=== PATIENT | male | born 1945 | race Caucasian/White ===

== ENCOUNTER 2016-08-27 22:18 | Inpatient (IN) | payer BC, MEDICARE ==
[~2016-08-27] VITALS: Ht 180.3 cm; Wt 92.4 kg
[~2016-08-27 22:18] MED LIST: SUCCINYLCHOLINE CHLORIDE 200 MG/10 ML VIAL IVP ONE
[2016-08-27 22:22] VITALS: O2SAT 88
[2016-08-27 22:41] LABS: I-STAT POTASSIUM 4.6 MMOL/L (3.5-4.9); I-STAT SODIUM 145 MMOL/L (138-146)
[2016-08-27 22:43] LABS: AUTOMATED NEUTROPHIL # 12.8 TH/MM3 (1.8-7.7); BASOPHIL # 0.5 TH/MM3 (0-0.2); BASOPHIL % 2.3 % (0.0-2.0); EOSINOPHIL # 0.7 TH/MM3 (0-0.4); EOSINOPHIL % 3.2 % (0.0-4.0); HEMATOCRIT 45.6 % (39.0-51.0); LYMPH % 29.4 % (9.0-44.0); LYMPHOCYTE # 6.1 TH/MM3 (1.0-4.8); MEAN CELL VOLUME 89.8 FL (80.0-100.0); MEAN CORPUSCULAR HEMOGLOBIN 30.8 PG (27.0-34.0); MEAN CORPUSCULAR HGB CONC 34.3 % (32.0-36.0); MONO % 3.7 % (0.0-8.0); NEUT % 61.4 % (16.0-70.0); PLATELET COUNT 253 TH/MM3 (150-450); RED BLOOD COUNT 5.07 MIL/MM3 (4.50-5.90); RED CELL DISTRIBUTION WIDTH 14.3 % (11.6-17.2); WHITE BLOOD COUNT 20.8 TH/MM3 (4.0-11.0)
[2016-08-27 22:44] LABS: HEMO FLAGS AUTO DIFF
[2016-08-27 22:45] VITALS: O2SAT 86
[2016-08-27] MEDS ORDERED: IOHEXOL 350 MG/ML 10 ML VIAL (for RAD DIAG) IV ONE (22:54)
[2016-08-27 22:58] LABS: APTT (PATIENT) 25.6 SEC (24.3-30.1); INTERNATIONAL NORMALIZED RATIO 1.1 RATIO
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
[2016-08-27 23:30] VITALS: O2SAT 91
[2016-08-27] MEDS ORDERED: ROCURONIUM INJ 50 MG/5 ML VIAL ONE (23:32)
[2016-08-27] MEDS ORDERED: MIDAZOLAM HCL 5 MG/ML VIAL (1 ML) ONE ×2 (23:32)
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
[2016-08-27 23:36] LABS: BANDS 5 % (0-6); EOSINOPHILS 3 % (0-4); NEUTROPHIL # MANUAL DIFF 11.2 TH/MM3 (1.8-7.7); POLYS (SEG NEUTROPHILS) 49 % (16-70); WBC DIFF SAMPLE 100
[2016-08-27 23:37] LABS: PLATELET ESTIMATE SMEAR NORMAL (NORMAL); PLATELET MORPHOLOGY NORMAL (NORMAL); SCAN/DIFF FINAL DIFF MANUAL
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
[2016-08-27 23:38] VITALS: O2SAT 94
[2016-08-27] MEDS ORDERED: NOREPINEPHRINE 4 MG/4 ML AMP ONE (23:41)
[2016-08-27] MEDS ORDERED: MIDAZOLAM HCL 5 MG/ML VIAL (1 ML) IV SCH (23:45)
[2016-08-27] MEDS ORDERED: ROCURONIUM INJ 50 MG/5 ML VIAL IV SCH (23:45)
[2016-08-27 23:46] LABS: AMPHETAMINE, URINE NEG (NEG); BARBITURATES, URINE NEG (NEG); COCAINE, URINE NEG (NEG)
[2016-08-27 23:47] LABS: BACTERIA, URINE RARE /hpf; BLOOD, URINE MOD (NEG); COMMENT (UR) CATH-CULT NOT IND; CULTURE IF INDICATED CATH CULTURE NOT IND; GLUCOSE,URINE NEG (NEG); KETONE, URINE NEG (NEG); MUCUS URINE FEW /lpf (OCC); NITRITE,URINE NEG (NEG); PH, URINE 5.5 (5.0-8.5); RENAL EPITHELIAL CELLS <1 /hpf; SQUAMOUS EPITHELIAL CELL URINE <1 /hpf (0-5); TRANSITIONAL EPI CELLS, URINE <1 /hpf; URINE COLOR YELLOW (YELLW/STRAW)
[2016-08-28] VITALS (17 sets, daily range): BP systolic 100–149; BP diastolic 56–93; PULSE 61–104; RESP 15–19; TEMP 96.6–101.3; O2SAT 95–100
[2016-08-28] MEDS ORDERED: ONDANSETRON HCL 4 MG/2 ML VIAL IV PRN (00:15)
[2016-08-28] MEDS ORDERED: MAGNESIUM OXIDE 400 MG TAB PO PRN (00:15)
[2016-08-28] MEDS ORDERED: POTASSIUM CHLOR 20 MEQ PREMIX 100 ML IV PRN ×2 (00:15)
[2016-08-28] MEDS ORDERED: POTASSIUM CHLOR 40 MEQ PREMIX 100 ML IV PRN ×2 (00:15)
[2016-08-28] MEDS ORDERED: Post-op Orders (for Pharmacy) MISC XX ONE (00:15)
[2016-08-28] MEDS ORDERED: NOREPINEPHRINE 4 MG/D5W 250 ML IV SCH (00:15)
[2016-08-28] MEDS ORDERED: PROPOFOL 1000 MG/100 ML INJ 100 ML IV SCH (00:15)
[2016-08-28] MEDS ORDERED: POTASSIUM CL 40 MEQ/30 ML LIQ UDC PO/TUBE PRN ×2 (00:15)
[2016-08-28] MEDS ORDERED: MAGNESIUM SULFATE INJ 4 GM in SODIUM CHLORIDE 0.9% INJ 92 ML IV PRN (00:15)
[2016-08-28] MEDS ORDERED: MAGNESIUM SULFATE INJ 2 GM in SODIUM CHLORIDE 0.9% INJ 96 ML IV PRN (00:15)
[2016-08-28] MEDS ORDERED: SODIUM CHLORIDE 0.9% FLUSH 5 ML FLUSH IVF PRN (00:15)
[2016-08-28] MEDS ORDERED: POTASSIUM PHOSPHATE MONOBASIC 500 MG TAB PO PRN (00:15)
[2016-08-28] MEDS ORDERED: NALOXONE HCL 0.4 MG/ML AMP IV PRN (00:15)
[2016-08-28] MEDS ORDERED: POTASSIUM PHOSPHATE MONOBASIC 500 MG TAB PO/TUBE PRN (00:15)
[2016-08-28] MEDS ORDERED: SODIUM PHOSPHATE INJ 30 MMOL in SODIUM CHLOR 0.9% 250 ML INJ 240 ML IV PRN (00:15)
[2016-08-28 00:23] LABS: CREATINE KINASE 477 U/L (39-308)
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
--- NOTE | 2016-08-28 00:34 | PD.OP ---
KHUSHI [id number] Operative Report Date of Surgery: Aug 28, 2016 Preoperative Diagnosis: Severe traumatic brain injury with a small left acute subdural hemorrhage along with the bihemispheric traumatic subarachnoid hemorrhage Postoperative Diagnosis: Same Procedure: Left frontal twist drill hole Suyapa ICP monitor placement Anesthesia: Local with sedation Surgeon: Marcio Hayes M.D. Cloth Washer Back Tender(s): None Operation and Findings: No family is available and the procedure to being undertaken taking the patient' s best interest into account in order to manage his severe traumatic brain injury. Following administration of the intravenous Versed and Diprivan drip with the oxygen saturation and hemodynamic monitoring in the intensive care unit , the left frontal region was shaved and the prep with chlor prep and sterilely draped. Using landmarks of 11 cm behind the nasion and 3 cm to the right of the midline, a 1 cm scalp incision was made after infiltrating with 1% lidocaine with epinephrine solution. With a handheld drill a twist drill hole was made in the underlying dura penetrated with a blunt probe. The Suyapa bolt was then secured to the skull. The fiberoptic catheter zeroed and passed into the subarachnoid space with an opening pressure of 7 mmHg noted. A sterile dressing was applied. There were no complications and blood loss was less than 5 cc. Marcio Hayes MD Aug 28, 2016 00:34
[2016-08-28 00:39] LABS: CKMB 3.7 NG/ML (0.5-3.6)
[2016-08-28] MEDS: fentaNYL 2,500 MCG/NS 250 ML IV SCH ×2 (00:54→18:09)
[2016-08-28] MEDS: 3% SALINE INJ 500 ML IV SCH ×2 (00:54→11:30)
[2016-08-28] MEDS: SODIUM CHLOR 0.9% 1000 ML INJ 1,000 ML IV SCH ×3 (00:55→20:04)
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
[2016-08-28] MEDS: levETIRAcetam INJ 500 MG in SODIUM CHLORIDE 0.9% INJ 100 ML IV SCH ×3 (00:57→20:51)
[2016-08-28] MEDS: PANTOPRAZOLE SODIUM 40 MG VIAL IV SCH ×2 (00:57→23:50)
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
[2016-08-28 02:07] LABS: BLOOD GAS BASE EXCESS -5.4 mmol/L (-2-2); BLOOD GAS CARBOXYHEMOGLOBIN 0.9 % (0-4); BLOOD GAS HCO3 20 mmol/L (22-26); BLOOD GAS METHEMOGLOBIN 0.9 % (0-2); BLOOD GAS O2 HGB SATURATION 92 % (90-100); BLOOD GAS OXYGEN CONTENT 17.8 Vol % (12.0-20.0); BLOOD GAS PCO2 45 mmHg (38-42); BLOOD GAS PO2 76 mmHg (61-120); BLOOD GAS TOTAL HGB 13.8 G/DL (12.0-16.0); CRITICAL VALUE YES; OXYGEN DEVICE VENTILATOR; TEMP CORR TO 98.6
[2016-08-28 02:08] LABS: DRAW SITE RT RADIAL; FIO2 100 %; NUMBER OF ARTERIAL PUNCTURES 1; STAT YES; ULNAR PULSE PRESENT; VENT SETTINGS PRVC/AC
[2016-08-28] MEDS ORDERED: ALBUMIN HUMAN 5% 25 GM/500 ML BOTTLE IV ONE (02:45)
[2016-08-28] MEDS: NOREPINEPHRINE INJ 4 MG in SODIUM CHLOR 0.9% 250 ML INJ 250 ML IV SCH ×3 (04:36→14:05)
[2016-08-28 04:47] LABS: AUTOMATED NEUTROPHIL # 20.2 TH/MM3 (1.8-7.7); BASOPHIL % 0.1 % (0.0-2.0); EOSINOPHIL # 0.1 TH/MM3 (0-0.4); EOSINOPHIL % 0.4 % (0.0-4.0); HEMATOCRIT 33.5 % (39.0-51.0); HEMO FLAGS DIFF FINAL; LYMPH % 5.7 % (9.0-44.0); LYMPHOCYTE # 1.3 TH/MM3 (1.0-4.8); MEAN CORPUSCULAR HEMOGLOBIN 30.3 PG (27.0-34.0); MEAN CORPUSCULAR HGB CONC 34.4 % (32.0-36.0); MONO % 7.7 % (0.0-8.0); NEUT % 86.1 % (16.0-70.0); PLATELET COUNT 244 TH/MM3 (150-450); RED BLOOD COUNT 3.81 MIL/MM3 (4.50-5.90); RED CELL DISTRIBUTION WIDTH 13.8 % (11.6-17.2); WHITE BLOOD COUNT 23.5 TH/MM3 (4.0-11.0)
[2016-08-28 05:15] LABS: BICARBONATE 21.5 MEQ/L (21.0-32.0); MAGNESIUM 1.7 MG/DL (1.5-2.5); POTASSIUM 3.6 MEQ/L (3.5-5.1)
[2016-08-28 05:36] LABS: BLOOD GAS BASE EXCESS -4.6 mmol/L (-2-2); BLOOD GAS HCO3 19 mmol/L (22-26); BLOOD GAS METHEMOGLOBIN 1.1 % (0-2); BLOOD GAS O2 HGB SATURATION 93 % (90-100); BLOOD GAS OXYGEN CONTENT 15.4 Vol % (12.0-20.0); BLOOD GAS PO2 73 mmHg (61-120); BLOOD GAS TOTAL HGB 11.7 G/DL (12.0-16.0); CRITICAL VALUE NO; DRAW SITE RT RADIAL; FIO2 50 %; NUMBER OF ARTERIAL PUNCTURES 1; OXYGEN DEVICE VENTILATOR; STAT NO; TEMP CORR TO 98.6; ULNAR PULSE PRESENT; VENT SETTINGS PRVC/AC
[2016-08-28 05:38] LABS: BLOOD GAS PCO2 29 mmHg (38-42)
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
--- NOTE | 2016-08-28 07:21 | PD.PROCEDR ---
Procedure Note Procedure DX: Traumatic Brain Injury OP: Insertion Left Radial Artery Line (23417) Procedure: Right radial artery weak after several attempts to cannulate. Left wrist/hand Noah test normal. Left clavicular fracture problematic but should be able to position arm in sling after line placed. Left wrist supinated , prepped and draped. Left radial artery cannulated with 20 gauge needle and wire advanced. Cannula passed over wire to 3 cm and good waveform observed. Dressing applied. Circulation to left hand intact after procedure. Woody Hussein MD Aug 28, 2016 07:21
[2016-08-28] MEDS: SODIUM CHLORIDE 0.9% FLUSH 5 ML FLUSH IVF SCH ×2 (08:06→20:52)
[2016-08-28] MEDS: CHLORHEXIDINE 0.12% (ORAL KIT) 15 ML CUP MT SCH ×2 (08:06→20:51)
[2016-08-28] MEDS ORDERED: RESP: ALBUTEROL 2.5 MG/IPRATROPIUM 0.5 MG NEB (PRN) NEB (09:00)
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
[2016-08-28] MEDS ORDERED: ACETAMINOPHEN 1000 MG/100 ML VIAL IV PRN (10:15)
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
[2016-08-28] MEDS ORDERED: ATOR40TA16 PO (12:12)
[2016-08-28] MEDS ORDERED: AMLO5TAB2 PO (12:12)
[2016-08-28] MEDS ORDERED: METF500T PO (12:12)
[2016-08-28] MEDS ORDERED: LISI10TA3 PO (12:12)
[2016-08-28] MEDS ORDERED: GLUCAGON 1 MG/ML VIAL IM/SQ PRN (12:30)
[2016-08-28] MEDS ORDERED: DEXTROSE 50% IN WATER 50 ML VIAL(D50) IV PRN (12:30)
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
[2016-08-28] MEDS: INSULIN ASPART SUPPLEMENTAL SCALE SQ SCH ×3 (13:02→23:50)
[2016-08-28 13:15] LABS: POTASSIUM 4.2 MEQ/L (3.5-5.1)
--- NOTE | 2016-08-28 14:22 | EKG ---
Date Performed: 08/28/2016 Time Performed: 00:33:10 PTAGE: 70 years EKG: Sinus rhythm with borderline 1st degree A-V block. Inferior infarct - age undetermined Low QRS voltages in precor dial leads Abnormal ECG NO PREVIOUS TRACING DOCTOR: Jordi Mo Interpretating Date/Time 08/28/2016 14:18:24
--- NOTE | 2016-08-28 14:56 | PD.ORT.PN ---
Subjective Subjective Remarks Intubated/sedated and daughter at bedside Objective Vitals Vital Signs Date Time Temp Pulse Resp B/P Pulse Ox O2 Delivery O2 Flow Rate FiO2 08/28/16 14:00 68 08/28/16 12:00 72 08/28/16 12:00 100.8 84 18 120/64 95 08/28/16 10:00 86 08/28/16 09:53 96 45 08/28/16 08:00 101.3 74 18 112/58 95 Automatic Cuff 08/28/16 08:00 76 08/28/16 07:40 96 45 08/28/16 07:40 96 45 08/28/16 07:00 96 Mechanical Ventilator 45 08/28/16 06:00 81 08/28/16 05:24 95 50 08/28/16 04:25 98 50 08/28/16 04:25 98 50 08/28/16 04:00 81 08/28/16 04:00 98.6 81 15 100/65 100 08/28/16 02:02 100 70 08/28/16 00:00 104 08/28/16 00:00 96.6 104 19 149/93 100 08/27/16 23:38 94 100 08/27/16 23:30 91 100 08/27/16 22:45 86 100 08/27/16 22:22 88 15.00 100 I/O 08/27/16 08/27/16 08/27/16 08/28/16 08/28/16 08/28/16 07:00 15:00 23:00 07:00 15:00 23:00 Intake Total 2491 ml 1639 ml Output Total 1350 ml 600 ml Balance 1141 ml 1039 ml Intake IV Total 2491 ml 1639 ml Output Urine Total 850 ml 400 ml Gastric Drainage Total 500 ml 200 ml # Bowel Movements 0 0 Result Diagram: 08/28/16 0433 08/28/16 1145 Other Results Laboratory Tests Test 08/27/16 22:24 Prothrombin Time 12.0 SEC (9.8-11.6) Prothromb Time International 1.1 RATIO Ratio Imaging Last 24 hours Impressions Chest X-Ray 08/28/16 0000 Signed Impressions: Service Date/Time: Sunday, August 28, 2016 00:39 - CONCLUSION: 1. Increased density at the bases being worse on the left representing contusion and/or atelectasis. 2. Reexpansion of the right upper lung. 3. Left clavicle fracture. Attila Benson MD Thoracic Spine CT 08/27/162220 Signed Impressions: Service Date/Time: Saturday, August 27, 2016 22:54 - CONCLUSION: 1. Subtle fracturing at the superior anterior aspect of the T6 vertebral body and the inferior T8 vertebral body without significant loss of height. The posterior vertebral body margins appear intact at these levels. 2. More prominent compression deformity at the superior aspect of L1 more fully described in CT of the lumbar spine report. Attila Benson MD Pelvis X-Ray 08/27/162220 Signed Impressions: Service Date/Time: Saturday, August 27, 2016 22:15 - CONCLUSION: No acute disease. Attila Benson MD Maxillofacial CT 08/27/162220 Signed Impressions: Service Date/Time: Saturday, August 27, 2016 22:44 - CONCLUSION: 1. Definite fracture at the left lateral orbit. 2. Lucency at the left inferior lateral orbit representing either a stricture or nondisplaced fracture. 3. Left periorbital soft tissue swelling. 4. Focal lucency at the base the left nasal bone which may a represent nondisplaced fracture. 5. Subarachnoid hemorrhage. Attila Benson MD Lumbar Spine CT 08/27/162220 Signed Impressions: Service Date/Time: Saturday, August 27, 2016 22:54 - CONCLUSION: 1. Fracturing of the superior L1 vertebral body with minimal retropulsion of the posterior superior aspect of the L1 vertebral body causing a mild impression on the thecal sac. There is also some increased density seen posterior to the mid and inferior aspect of the L1 vertebral body which may represent some mild anterior epidural hemorrhage. 2. Suspected fracturing at the left pars interarticularis region. 3. Mild L4-L5 disc bulge. Attila Benson MD Head CT 08/27/162220 Signed Impressions: Service Date/Time: Saturday, August 27, 2016 22:44 - CONCLUSION: 1. Small subdural hematoma over the left convexity measuring up to 6 mm in diameter with additional scattered subdural hemorrhage present as above. There is also subarachnoid hemorrhage bilaterally especially in the left sylvian fissure and scattered parenchymal subcentimeter contusions in the brain. There is no significant mass effect or midline shift on the current exam. Fluid in right frontal sinus. Left periorbital soft tissue swelling. Gurmeet Fox MD Chest X-Ray 08/27/162220 Signed Impressions: Service Date/Time: Saturday, August 27, 2016 22:15 - CONCLUSION: 1. Suspected bilateral rib fractures and a left clavicle fracture. 2. Suspected collapse of the right upper lobe versus a prominent area of contusion. There is also a lesser degree of increased parenchymal density like representing contusion at the left base. Attila Benson MD Chest CT 08/27/162220 Signed Impressions: Service Date/Time: Saturday, August 27, 2016 22:54 - CONCLUSION: 1. Upper sternal body fracture. 2. Acute right fourth and left sixth ribs fractures. 3. Left clavicle fracture 4. Suspected fracturing of the anterior inferior aspect of the T8 vertebral body without collapse. 5. Bilateral areas of suspected lung contusion. Attila Benson MD Cervical Spine CT 08/27/162220 Signed Impressions: Service Date/Time: Saturday, August 27, 2016 22:44 - CONCLUSION: 1. Moderate degenerative disc disease is present in the cervical spine. No acute fracture or spondylolisthesis. No prevertebral soft tissue swelling. Patient is intubated and NG tube present. There is opacification at the right lung apex. Gurmeet Fox MD Abdomen/Pelvis CT 08/27/162220 Signed Impressions: Service Date/Time: Saturday, August 27, 2016 22:54 - CONCLUSION: 1. No acute abnormality seen within the abdomen and pelvis. 2. Possible T8 vertebral body fracture seen at the anterior inferior aspect. 3. Nonspecific focal there is a sclerosis in the left pelvis. They may represent bone islands. Other causes for sclerotic lesions cannot be excluded. 4. 3.3 cm abdominal aortic aneurysm. Attila Benson MD Objective Remarks Full consult dictated Assessment & Plan Problem List: (1) Major neurocognitive disorder as late effect of traumatic brain injury with behavioral disturbance (2) Closed left clavicular fracture Assessment and Plan Neurosurgery management Monitor left clavicle fracture Surgical and non-operative fractures are both options Discussed with patient's and daughter Discussed with RN Monitor Antwan Aleman MD Aug 28, 2016 14:56
[2016-08-28 15:54] LABS: HEMATOCRIT 30.3 % (39.0-51.0); REVIEW FLAG FINAL
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
[2016-08-29] VITALS (18 sets, daily range): BP systolic 110–145; BP diastolic 59–75; PULSE 63–82; RESP 16–18; TEMP 99.5–100.2; O2SAT 95–100
[2016-08-29] MEDS: 3% SALINE INJ 500 ML IV SCH (01:32)
[2016-08-29] MEDS ORDERED: LIDOCAINE HCL 2% 100 MG/5 ML SYRINGE ONE (04:36)
[2016-08-29] MEDS ORDERED: EPINEPHrine HCL (1:10,000) 1 MG/10 ML SYRINGE ONE (04:36)
[2016-08-29] MEDS ORDERED: ATROPINE SULFATE 1 MG/10 ML SYRINGE ONE (04:36)
--- NOTE | 2016-08-29 05:15 | RADRPT ---
EXAM DATE/TIME: 08/29/2016 04:53 [facility] COMPARISON: CT BRAIN W/O CONTRAST, August 27, 2016, 22:44. INDICATIONS : Follow up subdural and subarachnoid hemorrhage RADIATION DOSE: 663.91 CTDIvol (mGy) MEDICAL HISTORY : Hypertension. Diabetes mellitus type 2. SURGICAL HISTORY : None. ENCOUNTER: Subsequent ACUITY: 1 day PAIN SCALE: Non-responsive LOCATION: Bilateral cranial TECHNIQUE: Multiple contiguous axial images were obtained of the head. Using automated exposure control and adj ustment of the mA and/or kV according to patient size, radiation dose was kept as low as reasonably a chievable to obtain optimal diagnostic quality images. FINDINGS: CEREBRUM: There is a pressure monitor in place from a right frontal approach. There continues to be widespread subarachnoid hemorrhage. There are mild superior parafalcine subdural hemorrhage, superior left baudilio etal subdural hemorrhage, and left tentorial subdural hemorrhage. There is a small focal parenchymal hemorrhage at the inferior lateral right frontal lobe The ventricles are normal for age. No evidence of midline shift or acute infarction. POSTERIOR FOSSA: The cerebellum and brainstem are intact. The 4th ventricle is midline. The cerebellopontine angle i s unremarkable. EXTRACRANIAL: There is fracture at the lateral left orbit. There is fluid/mucosal disease throughout the ethmoid an d sphenoid sinuses. SKULL: The calvaria is intact. No evidence of skull fracture. CONCLUSION: 1. Persistent areas of subarachnoid, subdural and parenchymal hemorrhage as described above. 2. Left frontal pressure monitor in good position. Attila Benson MD on August 29, 2016 at 5:09 Board Certified Radiologist. This report was verified electronically.
[2016-08-29 05:48] LABS: HEMATOCRIT 28.2 % (39.0-51.0); MEAN CELL VOLUME 89.4 FL (80.0-100.0); MEAN CORPUSCULAR HEMOGLOBIN 31.2 PG (27.0-34.0); MEAN CORPUSCULAR HGB CONC 34.9 % (32.0-36.0); PLATELET COUNT 134 TH/MM3 (150-450); RED BLOOD COUNT 3.15 MIL/MM3 (4.50-5.90); RED CELL DISTRIBUTION WIDTH 14.2 % (11.6-17.2); REVIEW FLAG FINAL; WHITE BLOOD COUNT 10.5 TH/MM3 (4.0-11.0)
[2016-08-29] MEDS: INSULIN ASPART SUPPLEMENTAL SCALE SQ SCH ×3 (06:00→18:00)
[2016-08-29 06:02] LABS: BLOOD GAS CARBOXYHEMOGLOBIN 1.1 % (0-4); BLOOD GAS HCO3 21 mmol/L (22-26); BLOOD GAS METHEMOGLOBIN 0.8 % (0-2); BLOOD GAS O2 HGB SATURATION 93 % (90-100); BLOOD GAS OXYGEN CONTENT 18.1 Vol % (12.0-20.0); BLOOD GAS PCO2 33 mmHg (38-42); BLOOD GAS PO2 69 mmHg (61-120); BLOOD GAS TOTAL HGB 13.9 G/DL (12.0-16.0); CRITICAL VALUE NO; OXYGEN DEVICE VENTILATOR; TEMP CORR TO 98.6
[2016-08-29 06:03] LABS: DRAW SITE ART LINE; FIO2 40 %; STAT YES; VENT SETTINGS PRVC /AC
[2016-08-29 06:30] LABS: ALKALINE PHOSPHATASE 57 U/L (45-117); ALT (GPT) 60 U/L (12-78); ANION GAP 7 MEQ/L (5-15); AST (GOT) 53 U/L (15-37); BICARBONATE 23.5 MEQ/L (21.0-32.0); BLOOD UREA NITROGEN 21 MG/DL (7-18); CHLORIDE 123 MEQ/L (98-107); GLOMERULAR FILTRATION RATE 80 ML/MIN (>89); POTASSIUM 3.6 MEQ/L (3.5-5.1); SODIUM (NA) 153 MEQ/L (136-145); TOTAL BILIRUBIN ADULT 1.8 MG/DL (0.2-1.0)
[2016-08-29] MEDS: SODIUM CHLOR 0.9% 1000 ML INJ 1,000 ML IV SCH ×2 (06:38→18:34)
--- NOTE | 2016-08-29 06:43 | RADRPT ---
EXAM DATE/TIME: 08/29/2016 05:18 [facility] COMPARISON: CHEST SINGLE AP, August 28, 2016, 0:39. INDICATIONS : Shortness of breath. MEDICAL HISTORY : Unobtainable. SURGICAL HISTORY : Unobtainable. ENCOUNTER: Subsequent ACUITY: 3 days PAIN SCORE: Non-responsive. LOCATION: Bilateral chest FINDINGS: ET tube is 1.3 cm from the emerita. NG tube is well placed. The heart size appears enlarged. There is increased density at the bases bilaterally being worse on the left. There is an old healed left rib f racture. CONCLUSION: 1. ET tube 1.3 cm from the emerita. This could be pulled back 2-3 cm. 2. Bibasilar areas of increased density representing consolidation or atelectasis being worse on the left. Some degree of effusion on the left cannot be excluded. Attila Benson MD on August 29, 2016 at 6:40 Board Certified Radiologist. This report was verified electronically.
[2016-08-29] MEDS: CHLORHEXIDINE 0.12% (ORAL KIT) 15 ML CUP MT SCH ×2 (08:00→20:09)
[2016-08-29] MEDS: POTASSIUM PHOSPHATE INJ 30 MMOL in SODIUM CHLOR 0.9% 250 ML INJ 250 ML IV PRN (08:25)
[2016-08-29] MEDS: SODIUM CHLORIDE 0.9% FLUSH 5 ML FLUSH IVF SCH ×2 (09:00→20:33)
[2016-08-29] MEDS: levETIRAcetam INJ 500 MG in SODIUM CHLORIDE 0.9% INJ 100 ML IV SCH ×2 (09:00→20:33)
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
[2016-08-29] MEDS: MIDAZOLAM 100 MG/NS 100 ML DRIP Premix IV SCH (10:56)
--- NOTE | 2016-08-29 12:03 | RADRPT ---
EXAM DATE/TIME: 08/29/2016 11:19 [facility] COMPARISON: No previous studies available for comparison. INDICATIONS : Dubhoff placement MEDICAL HISTORY : Unobtainable SURGICAL HISTORY : Unobtainable ENCOUNTER: Subsequent ACUITY: 3 days PAIN SCORE: Non-responsive. LOCATION: Bilateral Abdomen FINDINGS: Supine view of the abdomen was performed. Nasogastric tube tip in stomach. The abdominal bowel gas p attern is normal. No abnormal masses, calcifications, or organomegaly is seen. The osseous structur es are unremarkable. CONCLUSION: Nasogastric tube with tip in stomach. Chris Bennett MD on August 29, 2016 at 11:59 Board Certified Radiologist. This report was verified electronically.
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
--- NOTE | 2016-08-29 13:12 | RADRPT ---
EXAM DATE/TIME: 08/29/2016 12:51 [facility] COMPARISON: CHEST SINGLE AP, August 29, 2016, 5:18. CHEST SINGLE AP, August 29, 2016, 12:49. INDICATIONS : Dubhoff placement advanced MEDICAL HISTORY : Hypertension. Diabetes mellitus type II. SURGICAL HISTORY : None. ENCOUNTER: Subsequent ACUITY: 2 days PAIN SCORE: Non-responsive. LOCATION: Bilateral chest FINDINGS: Endotracheal tube is present with tip 6 cm above the emerita. A nasogastric tube descends in the stoma ch. A weighted feeding tube is present which is coiled in the pharynx. There is persistent perihilar and bibasilar parenchymal opacity is grossly stable. CONCLUSION: Weighted feeding tube is coiled in the pharynx Attila Beltran MD on August 29, 2016 at 13:07 Board Certified Radiologist. This report was verified electronically.
--- NOTE | 2016-08-29 13:12 | OTSOAPIP ---
TIME SESSION COMPLETED: 1300 TREATMENT TIME: 0 MINS. CHART REVIEWED. INTERDISCIPLINARY COMMUNICATION: NURSING REQUESTED TO HOLD TREATMENT DAY DUE TO FLUCTUATE ICP LEVELS PLAN: WILL SEE PATIENT NEXT TREATMENT DAY Therapist: ARNOLD MOORE/Ghada Signature on file
--- NOTE | 2016-08-29 13:13 | RADRPT ---
EXAM DATE/TIME: 08/29/2016 12:49 [facility] COMPARISON: CHEST SINGLE AP, August 29, 2016, 5:18. INDICATIONS : Dubhoff placement advanced. MEDICAL HISTORY : Hypertension. Diabetes mellitus type II. SURGICAL HISTORY : None. ENCOUNTER: Subsequent ACUITY: 2 days PAIN SCORE: Non-responsive. LOCATION: Bilateral chest FINDINGS: Endotracheal tube and nasogastric tube are stable. A weighted feeding tube is seen to be coiled in th e pharynx. There is mild hazy bibasilar parenchymal opacity more confluent on the left than the right . Cardiac contours are grossly stable. CONCLUSION: Weighted feeding tube is coiled in the pharynx Attila Beltran MD on August 29, 2016 at 13:11 Board Certified Radiologist. This report was verified electronically.
[2016-08-29 13:33] LABS: BLOOD GAS BASE EXCESS -2.4 mmol/L (-2-2); BLOOD GAS CARBOXYHEMOGLOBIN 1.2 % (0-4); BLOOD GAS HCO3 21 mmol/L (22-26); BLOOD GAS METHEMOGLOBIN 0.9 % (0-2); BLOOD GAS O2 HGB SATURATION 95 % (90-100); BLOOD GAS OXYGEN CONTENT 12.9 Vol % (12.0-20.0); BLOOD GAS PCO2 34 mmHg (38-42); BLOOD GAS PO2 84 mmHg (61-120); BLOOD GAS TOTAL HGB 9.6 G/DL (12.0-16.0); CRITICAL VALUE NO; OXYGEN DEVICE VENTILATOR; TEMP CORR TO 98.6
[2016-08-29 13:34] LABS: DRAW SITE ALINE; FIO2 40 %; STAT NO; VENT SETTINGS SEE COMMENTS
[2016-08-29] MEDS: fentaNYL 2,500 MCG/NS 250 ML IV SCH (13:57)
--- NOTE | 2016-08-29 14:25 | EC ---
Study Study Date:08/28/2016 STUDY CONCLUSIONS SUMMARY - Left ventricle: The cavity size was normal. Wall thickness was normal. Systolic function was normal. The estimated ejection fraction was in the range of 55% to 60%. Wall motion was normal; there were no regional wall motion abnormalities. - Pericardium, extracardiac: A trivial pericardial effusion was identified. If LV function is below 40, please consider prescribing an ACEI or ARB or document rationale for non-use. PROCEDURE DATA STUDY STATUS: Elective. Procedure: Transthoracic echocardiography. Image quality was poor. Scanning was performed from the parasternal, apical, and subcostal acoustic windows. Study completion: The patient tolerated the procedure well. Transthoracic echocardiography. M-mode, complete 2D, complete spectral Doppler, and color Doppler. Patient status: Inpatient. CARDIAC ANATOMY LEFT VENTRICLE: The cavity size was normal. Wall thickness was normal. Systolic function was normal. The estimated ejection fraction was in the range of 55% to 60%. Wall motion was normal; there were no regional wall motion abnormalities. AORTIC VALVE: Trileaflet; normal thickness leaflets. Doppler: Transvalvular velocity was within the normal range. There was no stenosis. No regurgitation. Mean gradient: 13mm Hg (S). Peak gradient: 25mm Hg (S). AORTA: The aorta was mildly calcified. Aortic root: The aortic root was normal in size. MITRAL VALVE: Structurally normal valve. Doppler: Transvalvular velocity was within the normal range. There was no evidence for stenosis. No regurgitation. Mean gradient: 2mm Hg (D). Peak gradient: 3mm Hg (D). LEFT ATRIUM: The atrium was normal in size. RIGHT VENTRICLE: The cavity size was normal. Wall thickness was normal. PULMONIC VALVE: Doppler: Transvalvular velocity was within the normal range. There was no evidence for stenosis. No regurgitation. TRICUSPID VALVE: Structurally normal valve. Doppler: Transvalvular velocity was within the normal range. No regurgitation. PULMONARY ARTERY: The main pulmonary artery was normal-sized. Systolic pressure was within the normal range. RIGHT ATRIUM: The atrium was normal in size. PERICARDIUM: A trivial pericardial effusion was identified. SYSTEMIC VEINS: Inferior vena cava: The vessel was normal in size. BASIC MEASUREMENTS ADULT Normal Left ventricle LV internal dimension, ED, chordal level, 46 mm 43-52 PLAX LV internal dimension, ES, chordal level, 31.9 mm 23-38 PLAX Fractional shortening, chordal level, PLAX 31 % >29 LV posterior wall thickness, ED 6.39 mm IVS/LVPW ratio, ED *1.38 <1.3 Ventricular septum Septal thickness, ED 8.81 mm Left atrium Anterior-posterior dimension 33 mm Right ventricle RV internal dimension, ED, PLAX 23.1 mm 19-38 DOPPLER MEASUREMENTS ADULT Normal Aortic valve Peak velocity, S 251 cm/s Mean velocity, S 165 cm/s VTI, S 28.2 cm Mean gradient, S 13 mm Hg Peak gradient, S 25 mm Hg Mitral valve Peak E-wave velocity 78.5 cm/s Peak A-wave velocity 90.3 cm/s Mean velocity, D 65.6 cm/s Mean gradient, D 2 mm Hg Peak gradient, D 3 mm Hg Peak E/A ratio 0.9 Tricuspid valve Regurgitant peak velocity 289 cm/s Peak RV-RA gradient, S 33 mm Hg Maximal regurgitant velocity 289 cm/s LEGEND: Mean values are shown as u=mean value. Asterisk (*) thomas values outside specified normal range. Prepared and signed by Jordi Mo [id number]
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
[2016-08-29] MEDS: LACTULOSE SYRUP 20 GM/30 ML CUP PO SCH (18:21)
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
[2016-08-29] MEDS: FAMOTIDINE 20 MG TAB PO SCH (20:33)
[2016-08-29] MEDS: DOCUSATE SODIUM 50 MG/SENNA 8.6 MG TAB PO SCH (20:33)
[2016-08-29] MEDS: ACETAMINOPHEN 325 MG TAB PO PRN (21:56)
[2016-08-30] VITALS (14 sets, daily range): BP systolic 125–172; BP diastolic 70–85; PULSE 60–91; RESP 14–16; TEMP 97.2–100.4; O2SAT 96–100
--- NOTE | 2016-08-30 04:33 | RADRPT ---
EXAM DATE/TIME: 08/30/2016 04:24 [facility] COMPARISON: CHEST SINGLE AP, August 29, 2016, 12:51. INDICATIONS : Shortness of breath. MEDICAL HISTORY : Hypertension. Diabetes mellitus type II. SURGICAL HISTORY : None. ENCOUNTER: Subsequent ACUITY: 4 - 6 days PAIN SCORE: Non-responsive. LOCATION: Bilateral chest FINDINGS: There is an ET tube and NG tube in place. The heart size appears enlarged. There is increased density at the mid and lower lungs bilaterally being worse on the left. CONCLUSION: Increased density at the bases especially on the left likely related to consolidation, atelectasis, a nd some degree of left effusion. Attila Benson MD on August 30, 2016 at 4:31 Board Certified Radiologist. This report was verified electronically.
[2016-08-30 04:58] LABS: HEMATOCRIT 27.7 % (39.0-51.0); MEAN CELL VOLUME 89.4 FL (80.0-100.0); MEAN CORPUSCULAR HEMOGLOBIN 30.9 PG (27.0-34.0); MEAN CORPUSCULAR HGB CONC 34.5 % (32.0-36.0); PLATELET COUNT 127 TH/MM3 (150-450); RED CELL DISTRIBUTION WIDTH 14.1 % (11.6-17.2); REVIEW FLAG FINAL; WHITE BLOOD COUNT 10.4 TH/MM3 (4.0-11.0)
[2016-08-30 05:27] LABS: BICARBONATE 24.3 MEQ/L (21.0-32.0); MAGNESIUM 2.2 MG/DL (1.5-2.5); POTASSIUM 3.6 MEQ/L (3.5-5.1)
[2016-08-30 05:27] LABS: BLOOD GAS BASE EXCESS -1.9 mmol/L (-2-2); BLOOD GAS CARBOXYHEMOGLOBIN 1.1 % (0-4); BLOOD GAS HCO3 22 mmol/L (22-26); BLOOD GAS METHEMOGLOBIN 0.7 % (0-2); BLOOD GAS O2 HGB SATURATION 96 % (90-100); BLOOD GAS OXYGEN CONTENT 13.3 Vol % (12.0-20.0); BLOOD GAS PCO2 35 mmHg (38-42); BLOOD GAS PO2 94 mmHg (61-120); BLOOD GAS TOTAL HGB 9.7 G/DL (12.0-16.0); CRITICAL VALUE NO; OXYGEN DEVICE VENTILATOR; TEMP CORR TO 98.6
[2016-08-30 05:28] LABS: DRAW SITE ART LINE; FIO2 40 %; STAT NO; VENT SETTINGS PRVC / AC /
[2016-08-30] MEDS: fentaNYL 2,500 MCG/NS 250 ML IV SCH (05:56)
[2016-08-30] MEDS: MIDAZOLAM 100 MG/NS 100 ML DRIP Premix IV SCH (05:58)
[2016-08-30] MEDS: INSULIN ASPART SUPPLEMENTAL SCALE SQ SCH ×4 (06:20→18:19)
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
[2016-08-30] MEDS: POTASSIUM PHOSPHATE INJ 30 MMOL in SODIUM CHLOR 0.9% 250 ML INJ 250 ML IV PRN (07:48)
[2016-08-30] MEDS: CHLORHEXIDINE 0.12% (ORAL KIT) 15 ML CUP MT SCH ×2 (08:00→19:53)
[2016-08-30] MEDS: FAMOTIDINE 20 MG TAB PO SCH ×2 (08:54→21:51)
[2016-08-30] MEDS: LACTULOSE SYRUP 20 GM/30 ML CUP PO SCH (08:54)
[2016-08-30] MEDS: levETIRAcetam INJ 500 MG in SODIUM CHLORIDE 0.9% INJ 100 ML IV SCH ×2 (08:54→21:51)
[2016-08-30] MEDS: DOCUSATE SODIUM 50 MG/SENNA 8.6 MG TAB PO SCH ×2 (08:54→21:52)
[2016-08-30] MEDS: SODIUM CHLORIDE 0.9% FLUSH 5 ML FLUSH IVF SCH ×2 (08:54→19:53)
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
[2016-08-30] MEDS ORDERED: BUMETANIDE INJ 1 MG/4 ML VIAL IV PUSH ONE (12:00)
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
[2016-08-30] MEDS: LABETALOL HCL 100 MG/20 ML VIAL IV PRN (14:42)
[2016-08-30 18:01] LABS: BICARBONATE 26.2 MEQ/L (21.0-32.0); POTASSIUM 3.5 MEQ/L (3.5-5.1)
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
[2016-08-31] VITALS (16 sets, daily range): BP systolic 126–154; BP diastolic 63–71; PULSE 72–92; RESP 12–15; TEMP 99–100.6; O2SAT 95–98
[2016-08-31] MEDS: INSULIN ASPART SUPPLEMENTAL SCALE SQ SCH ×4 (00:32→17:16)
[2016-08-31 04:09] LABS: HEMATOCRIT 29.2 % (39.0-51.0); MEAN CORPUSCULAR HEMOGLOBIN 31.2 PG (27.0-34.0); MEAN CORPUSCULAR HGB CONC 35.4 % (32.0-36.0); PLATELET COUNT 158 TH/MM3 (150-450); RED BLOOD COUNT 3.32 MIL/MM3 (4.50-5.90); RED CELL DISTRIBUTION WIDTH 14.1 % (11.6-17.2); REVIEW FLAG FINAL; WHITE BLOOD COUNT 9.4 TH/MM3 (4.0-11.0)
[2016-08-31 04:36] LABS: BICARBONATE 28.2 MEQ/L (21.0-32.0); MAGNESIUM 2.4 MG/DL (1.5-2.5); POTASSIUM 3.9 MEQ/L (3.5-5.1)
[2016-08-31] MEDS: SODIUM CHLOR 0.9% 1000 ML INJ 1,000 ML IV SCH ×2 (04:56→21:36)
[2016-08-31 05:52] LABS: BLOOD GAS BASE EXCESS 2.3 mmol/L (-2-2); BLOOD GAS CARBOXYHEMOGLOBIN 1.2 % (0-4); BLOOD GAS HCO3 26 mmol/L (22-26); BLOOD GAS METHEMOGLOBIN 0.8 % (0-2); BLOOD GAS O2 HGB SATURATION 96 % (90-100); BLOOD GAS OXYGEN CONTENT 18.3 Vol % (12.0-20.0); BLOOD GAS PCO2 39 mmHg (38-42); BLOOD GAS PO2 95 mmHg (61-120); BLOOD GAS TOTAL HGB 13.5 G/DL (12.0-16.0); CRITICAL VALUE NO; OXYGEN DEVICE VENTILATOR; TEMP CORR TO 98.6
[2016-08-31 05:53] LABS: DRAW SITE ALINE; FIO2 40 %; STAT NO
--- NOTE | 2016-08-31 06:34 | RADRPT ---
EXAM DATE/TIME: 08/31/2016 05:23 [facility] COMPARISON: CHEST SINGLE AP, August 30, 2016, 4:24. INDICATIONS : Shortness of breath MEDICAL HISTORY : Hypertension. Diabetes mellitus type II. SURGICAL HISTORY : None. ENCOUNTER: Subsequent ACUITY: 4 - 6 days PAIN SCORE: Non-responsive. LOCATION: Bilateral chest FINDINGS: ET tube and NG tube in place. There is increased density at the left base silhouetting of the left he art border and the left hemidiaphragm. The right lung is clear. Old left rib fractures are present. T here is an acute fracture at the left mid clavicle. CONCLUSION: Left lower lobe consolidation or atelectasis, some degree of effusion on the left needs to be conside red. Attila Benson MD on August 31, 2016 at 6:31 Board Certified Radiologist. This report was verified electronically.
[2016-08-31] MEDS: SODIUM CHLORIDE 0.9% FLUSH 5 ML FLUSH IVF SCH ×2 (09:00→20:59)
[2016-08-31] MEDS: LACTULOSE SYRUP 20 GM/30 ML CUP PO SCH (09:08)
[2016-08-31] MEDS: DOCUSATE SODIUM 50 MG/SENNA 8.6 MG TAB PO SCH ×2 (09:08→20:58)
[2016-08-31] MEDS: FAMOTIDINE 20 MG TAB PO SCH ×2 (09:08→20:58)
[2016-08-31] MEDS: levETIRAcetam INJ 500 MG in SODIUM CHLORIDE 0.9% INJ 100 ML IV SCH ×2 (09:09→20:58)
[2016-08-31] MEDS: CHLORHEXIDINE 0.12% (ORAL KIT) 15 ML CUP MT SCH ×2 (09:09→20:00)
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
[2016-08-31] MEDS: LABETALOL HCL 100 MG/20 ML VIAL IV PRN (18:31)
[2016-08-31] MEDS: MAGNESIUM HYDROXIDE SUSP 30 ML CUP PO SCH (20:58)
[2016-09-01] VITALS (18 sets, daily range): BP systolic 117–169; BP diastolic 66–97; PULSE 73–102; RESP 14–16; TEMP 100–101.1; O2SAT 95–98
[2016-09-01] MEDS: INSULIN ASPART SUPPLEMENTAL SCALE SQ SCH ×5 (01:02→23:54)
--- NOTE | 2016-09-01 04:19 | RADRPT ---
EXAM DATE/TIME: 09/01/2016 03:54 [facility] COMPARISON: CHEST SINGLE AP, August 31, 2016, 5:23. INDICATIONS : Shortness of breath. MEDICAL HISTORY : Hypertension. Diabetes mellitus type II. SURGICAL HISTORY : None. ENCOUNTER: Subsequent ACUITY: 4 - 6 days PAIN SCORE: Non-responsive. LOCATION: Bilateral chest FINDINGS: There is cardiomegaly and shallow lung volumes. Endotracheal tube and NG tube noted. Right subclavian line distal tip not well visualized. There is hazy density at the left base which may reflect consol idation. CONCLUSION: No significant change has occurred. Mathew Hoffman MD on September 01, 2016 at 4:17 Board Certified Radiologist. This report was verified electronically.
[2016-09-01 04:32] LABS: AUTOMATED NEUTROPHIL # 8.1 TH/MM3 (1.8-7.7); BASOPHIL % 0.3 % (0.0-2.0); EOSINOPHIL # 0.4 TH/MM3 (0-0.4); EOSINOPHIL % 3.5 % (0.0-4.0); HEMATOCRIT 31.9 % (39.0-51.0); HEMO FLAGS DIFF FINAL; LYMPH % 11.3 % (9.0-44.0); LYMPHOCYTE # 1.2 TH/MM3 (1.0-4.8); MEAN CELL VOLUME 89.9 FL (80.0-100.0); MEAN CORPUSCULAR HEMOGLOBIN 30.5 PG (27.0-34.0); MEAN CORPUSCULAR HGB CONC 33.9 % (32.0-36.0); MONO % 10.3 % (0.0-8.0); NEUT % 74.6 % (16.0-70.0); PLATELET COUNT 194 TH/MM3 (150-450); RED BLOOD COUNT 3.55 MIL/MM3 (4.50-5.90); RED CELL DISTRIBUTION WIDTH 14.2 % (11.6-17.2); WHITE BLOOD COUNT 10.9 TH/MM3 (4.0-11.0)
[2016-09-01 04:58] LABS: ALT (GPT) 70 U/L (12-78); ANION GAP 7 MEQ/L (5-15); AST (GOT) 43 U/L (15-37); BICARBONATE 27.7 MEQ/L (21.0-32.0); BLOOD UREA NITROGEN 29 MG/DL (7-18); CHLORIDE 116 MEQ/L (98-107); GLOMERULAR FILTRATION RATE 87 ML/MIN (>89); MAGNESIUM 2.7 MG/DL (1.5-2.5); POTASSIUM 4.5 MEQ/L (3.5-5.1); SODIUM (NA) 151 MEQ/L (136-145)
[2016-09-01 05:00] LABS: ALKALINE PHOSPHATASE 94 U/L (45-117); TOTAL BILIRUBIN ADULT 1.6 MG/DL (0.2-1.0)
[2016-09-01 05:11] LABS: BLOOD GAS CARBOXYHEMOGLOBIN 1.4 % (0-4); BLOOD GAS HCO3 25 mmol/L (22-26); BLOOD GAS METHEMOGLOBIN 0.8 % (0-2); BLOOD GAS O2 HGB SATURATION 96 % (90-100); BLOOD GAS OXYGEN CONTENT 15.2 Vol % (12.0-20.0); BLOOD GAS PCO2 36 mmHg (38-42); BLOOD GAS PO2 99 mmHg (61-120); BLOOD GAS TOTAL HGB 11.2 G/DL (12.0-16.0); CRITICAL VALUE NO; OXYGEN DEVICE VENTILATOR; TEMP CORR TO 98.6
[2016-09-01 05:12] LABS: DRAW SITE ART LINE; FIO2 40 %; STAT NO; VENT SETTINGS PRVC/AC
[2016-09-01] MEDS ORDERED: BISACODYL 10 MG SUPP RECTAL ONE (09:00)
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
[2016-09-01] MEDS: levETIRAcetam INJ 500 MG in SODIUM CHLORIDE 0.9% INJ 100 ML IV SCH ×2 (10:05→20:26)
[2016-09-01] MEDS: CHLORHEXIDINE 0.12% (ORAL KIT) 15 ML CUP MT SCH ×2 (10:05→20:26)
[2016-09-01] MEDS: DOCUSATE SODIUM 50 MG/SENNA 8.6 MG TAB PO SCH ×2 (10:08→20:26)
[2016-09-01] MEDS: FAMOTIDINE 20 MG TAB PO SCH ×2 (10:08→20:26)
[2016-09-01] MEDS: LACTULOSE SYRUP 20 GM/30 ML CUP PO SCH (10:08)
[2016-09-01] MEDS: SODIUM CHLORIDE 0.9% FLUSH 5 ML FLUSH IVF SCH ×2 (10:09→20:26)
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
[2016-09-01] MEDS ORDERED: ACETAMINOPHEN 325 MG TAB PO PRN (12:30)
[2016-09-01] MEDS ORDERED: ACETAMINOPHEN 650 MG SUPP PR PRN (12:30)
[2016-09-01] MEDS: METOPROLOL TARTRATE 5 MG/5 ML VIAL IV PUSH SCH ×2 (12:53→18:33)
[2016-09-01] MEDS: FUROSEMIDE 20 MG/2 ML VIAL IV PUSH SCH (12:53)
[2016-09-01] MEDS: MIDAZOLAM 100 MG/NS 100 ML DRIP Premix IV SCH (13:06)
[2016-09-01] MEDS: SODIUM CHLOR 0.9% 1000 ML INJ 1,000 ML IV SCH (14:16)
[2016-09-01 14:37] LABS: BLOOD, URINE SMALL (NEG); COMMENT (UR) CULT NOT INDICATED; CULTURE IF INDICATED CULT NOT INDICATED; GLUCOSE,URINE NEG (NEG); HYALINE CAST, URINE 2 /lpf (RARE); KETONE, URINE NEG (NEG); MUCUS URINE FEW /lpf (OCC); NITRITE,URINE NEG (NEG); URINE COLOR LIGHT-YELLOW (YELLW/STRAW)
[2016-09-01] MEDS: ACETAMINOPHEN 325 MG TAB PO PRN ×2 (17:07→21:57)
[2016-09-01] MEDS: fentaNYL 2,500 MCG/NS 250 ML IV SCH (18:56)
[2016-09-01] MEDS: MAGNESIUM HYDROXIDE SUSP 30 ML CUP PO SCH (20:26)
[2016-09-02] VITALS (23 sets, daily range): BP systolic 112–159; BP diastolic 6–87; PULSE 73–102; RESP 14–22; TEMP 98.7–102.4; O2SAT 95–100
[2016-09-02] MEDS: METOPROLOL TARTRATE 5 MG/5 ML VIAL IV PUSH SCH ×4 (00:48→18:14)
[2016-09-02] MEDS: ACETAMINOPHEN 1000 MG/100 ML VIAL IV SCH ×3 (03:00→18:36)
[2016-09-02] MEDS ORDERED: ACETAMINOPHEN 1000 MG/100 ML VIAL IV SCH (03:00)
[2016-09-02 04:30] LABS: AUTOMATED NEUTROPHIL # 11.4 TH/MM3 (1.8-7.7); BASOPHIL % 0.3 % (0.0-2.0); EOSINOPHIL # 0.4 TH/MM3 (0-0.4); EOSINOPHIL % 3.1 % (0.0-4.0); HEMATOCRIT 33.6 % (39.0-51.0); HEMO FLAGS DIFF FINAL; LYMPHOCYTE # 0.8 TH/MM3 (1.0-4.8); MEAN CELL VOLUME 89.5 FL (80.0-100.0); MEAN CORPUSCULAR HEMOGLOBIN 30.2 PG (27.0-34.0); MEAN CORPUSCULAR HGB CONC 33.8 % (32.0-36.0); MONO % 10.4 % (0.0-8.0); NEUT % 80.2 % (16.0-70.0); PLATELET COUNT 196 TH/MM3 (150-450); RED BLOOD COUNT 3.76 MIL/MM3 (4.50-5.90); RED CELL DISTRIBUTION WIDTH 14.7 % (11.6-17.2); WHITE BLOOD COUNT 14.2 TH/MM3 (4.0-11.0)
[2016-09-02 04:49] LABS: BLOOD GAS BASE EXCESS 2.5 mmol/L (-2-2); BLOOD GAS CARBOXYHEMOGLOBIN 1.5 % (0-4); BLOOD GAS HCO3 26 mmol/L (22-26); BLOOD GAS METHEMOGLOBIN 0.7 % (0-2); BLOOD GAS O2 HGB SATURATION 96 % (90-100); BLOOD GAS OXYGEN CONTENT 16.1 Vol % (12.0-20.0); BLOOD GAS PCO2 35 mmHg (38-42); BLOOD GAS PO2 111 mmHg (61-120); BLOOD GAS TOTAL HGB 11.8 G/DL (12.0-16.0); CRITICAL VALUE NO; DRAW SITE ALINE; FIO2 40 %; OXYGEN DEVICE VENTILATOR; STAT NO; TEMP CORR TO 98.6; ULNAR PULSE PRESENT; VENT SETTINGS PRVC/14/600/0.9/+5
[2016-09-02 04:56] LABS: ALKALINE PHOSPHATASE 125 U/L (45-117); ALT (GPT) 122 U/L (12-78); ANION GAP 9 MEQ/L (5-15); AST (GOT) 85 U/L (15-37); BICARBONATE 29.4 MEQ/L (21.0-32.0); BLOOD UREA NITROGEN 37 MG/DL (7-18); CHLORIDE 112 MEQ/L (98-107); GLOMERULAR FILTRATION RATE 86 ML/MIN (>89); MAGNESIUM 2.9 MG/DL (1.5-2.5); POTASSIUM 4.1 MEQ/L (3.5-5.1); SODIUM (NA) 150 MEQ/L (136-145); TOTAL BILIRUBIN ADULT 2.1 MG/DL (0.2-1.0)
[2016-09-02] MEDS: SODIUM CHLOR 0.9% 1000 ML INJ 1,000 ML IV SCH ×2 (05:39→22:39)
[2016-09-02] MEDS: INSULIN ASPART SUPPLEMENTAL SCALE SQ SCH ×3 (05:39→17:03)
--- NOTE | 2016-09-02 06:57 | RADRPT ---
EXAM DATE/TIME: 09/02/2016 04:59 [facility] COMPARISON: CHEST SINGLE AP, September 01, 2016, 3:54. INDICATIONS : Trauma MEDICAL HISTORY : Hypertension. Diabetes mellitus type II. SURGICAL HISTORY : None. ENCOUNTER: Subsequent ACUITY: 4 - 6 days PAIN SCORE: Non-responsive. LOCATION: Bilateral chest FINDINGS: Endotracheal tube tip at the inferior margin of the clavicles. NG tube courses beneath the diaphragm. Right subclavian line tip overlies the expected location of the right atrium. There is minimal paren chymal density at the left base likely representing atelectasis. Cardiomegaly is noted, left sided ri b fractures are present. CONCLUSION: Left basilar atelectasis. Mathew Hoffman MD on September 02, 2016 at 6:54 Board Certified Radiologist. This report was verified electronically.
[2016-09-02] MEDS: levETIRAcetam INJ 500 MG in SODIUM CHLORIDE 0.9% INJ 100 ML IV SCH ×2 (08:28→20:14)
[2016-09-02] MEDS: SODIUM CHLORIDE 0.9% FLUSH 5 ML FLUSH IVF SCH ×2 (08:28→20:14)
[2016-09-02] MEDS: FUROSEMIDE 20 MG/2 ML VIAL IV PUSH SCH (08:28)
[2016-09-02] MEDS: DOCUSATE SODIUM 50 MG/SENNA 8.6 MG TAB PO SCH ×2 (08:29→20:13)
[2016-09-02] MEDS: FAMOTIDINE 20 MG TAB PO SCH ×2 (08:29→20:13)
[2016-09-02] MEDS: CHLORHEXIDINE 0.12% (ORAL KIT) 15 ML CUP MT SCH ×2 (08:29→20:14)
[2016-09-02] MEDS: LACTULOSE SYRUP 20 GM/30 ML CUP PO SCH (08:29)
--- NOTE | 2016-09-02 11:27 | PD.ORT.PN ---
Subjective Subjective Remarks Intubated/sedated and daughter at bedside Objective Vitals Vital Signs Date Time Temp Pulse Resp B/P Pulse Ox O2 Delivery O2 Flow Rate FiO2 09/02/16 10:54 95 40 09/02/16 10:54 40 09/02/16 10:42 95 40 09/02/16 10:00 90 09/02/16 08:00 98.7 73 14 115/86 100 119/82 09/02/16 08:00 40 09/02/16 08:00 73 09/02/16 06:00 74 09/02/16 04:00 87 09/02/16 04:00 40 09/02/16 04:00 100.9 98 14 136/70 98 09/02/16 03:40 98 40 09/02/16 03:30 102.4 09/02/16 02:30 102.4 09/02/16 02:00 87 09/02/16 00:16 95 40 09/02/16 00:00 100.8 102 14 159/85 99 09/02/16 00:00 87 09/02/16 00:00 40 09/01/16 22:00 87 09/01/16 21:15 97 40 09/01/16 21:15 97 40 09/01/16 20:00 40 09/01/16 20:00 100.0 82 14 134/69 97 09/01/16 20:00 82 09/01/16 18:00 99 09/01/16 16:22 97 40 09/01/16 16:00 101.1 94 14 142/76 96 09/01/16 16:00 94 09/01/16 16:00 40 09/01/16 14:00 87 09/01/16 12:03 96 40 09/01/16 12:00 102 09/01/16 12:00 40 09/01/16 12:00 100.8 102 14 169/87 96 I/O 09/01/16 09/01/16 09/01/16 09/02/16 09/02/16 09/02/16 07:00 15:00 23:00 07:00 15:00 23:00 Intake Total 634 ml 808 ml 634 ml 763 ml Output Total 750 ml 1435.0 ml 550 ml 550 ml 0 ml Balance -116 ml -627.0 ml 84 ml 213 ml 0 ml Intake IV Total 188 ml 253 ml 207 ml 261 ml Tube Feeding 446 ml 445 ml 257 ml 442 ml Other 110 ml 170 ml 60 ml Output Urine Total 750 ml 1275 ml 550 ml 550 ml Gastric Drainage Total 80 ml Tube Feeding Residual Discard 80.0 ml 0 ml 0 ml # Bowel Movements 0 0 1 2 Result Diagram: 09/02/16 0345 09/02/16 0345 Imaging Last 24 hours Impressions Chest X-Ray 08/28/16 0000 Signed Impressions: Service Date/Time: Sunday, August 28, 2016 00:39 - CONCLUSION: 1. Increased density at the bases being worse on the left representing contusion and/or atelectasis. 2. Reexpansion of the right upper lung. 3. Left clavicle fracture. Attila Benson MD Thoracic Spine CT 08/27/162220 Signed Impressions: Service Date/Time: Saturday, August 27, 2016 22:54 - CONCLUSION: 1. Subtle fracturing at the superior anterior aspect of the T6 vertebral body and the inferior T8 vertebral body without significant loss of height. The posterior vertebral body margins appear intact at these levels. 2. More prominent compression deformity at the superior aspect of L1 more fully described in CT of the lumbar spine report. Attila Benson MD Pelvis X-Ray 08/27/162220 Signed Impressions: Service Date/Time: Saturday, August 27, 2016 22:15 - CONCLUSION: No acute disease. Attlia Benson MD Maxillofacial CT 08/27/162220 Signed Impressions: Service Date/Time: Saturday, August 27, 2016 22:44 - CONCLUSION: 1. Definite fracture at the left lateral orbit. 2. Lucency at the left inferior lateral orbit representing either a stricture or nondisplaced fracture. 3. Left periorbital soft tissue swelling. 4. Focal lucency at the base the left nasal bone which may a represent nondisplaced fracture. 5. Subarachnoid hemorrhage. Attila Benson MD Lumbar Spine CT 08/27/162220 Signed Impressions: Service Date/Time: Saturday, August 27, 2016 22:54 - CONCLUSION: 1. Fracturing of the superior L1 vertebral body with minimal retropulsion of the posterior superior aspect of the L1 vertebral body causing a mild impression on the thecal sac. There is also some increased density seen posterior to the mid and inferior aspect of the L1 vertebral body which may represent some mild anterior epidural hemorrhage. 2. Suspected fracturing at the left pars interarticularis region. 3. Mild L4-L5 disc bulge. Attila Benson MD Head CT 08/27/162220 Signed Impressions: Service Date/Time: Saturday, August 27, 2016 22:44 - CONCLUSION: 1. Small subdural hematoma over the left convexity measuring up to 6 mm in diameter with additional scattered subdural hemorrhage present as above. There is also subarachnoid hemorrhage bilaterally especially in the left sylvian fissure and scattered parenchymal subcentimeter contusions in the brain. There is no significant mass effect or midline shift on the current exam. Fluid in right frontal sinus. Left periorbital soft tissue swelling. Gurmeet Fox MD Chest X-Ray 08/27/162220 Signed Impressions: Service Date/Time: Saturday, August 27, 2016 22:15 - CONCLUSION: 1. Suspected bilateral rib fractures and a left clavicle fracture. 2. Suspected collapse of the right upper lobe versus a prominent area of contusion. There is also a lesser degree of increased parenchymal density like representing contusion at the left base. Attila Benson MD Chest CT 08/27/162220 Signed Impressions: Service Date/Time: Saturday, August 27, 2016 22:54 - CONCLUSION: 1. Upper sternal body fracture. 2. Acute right fourth and left sixth ribs fractures. 3. Left clavicle fracture 4. Suspected fracturing of the anterior inferior aspect of the T8 vertebral body without collapse. 5. Bilateral areas of suspected lung contusion. Attila Benson MD Cervical Spine CT 08/27/162220 Signed Impressions: Service Date/Time: Saturday, August 27, 2016 22:44 - CONCLUSION: 1. Moderate degenerative disc disease is present in the cervical spine. No acute fracture or spondylolisthesis. No prevertebral soft tissue swelling. Patient is intubated and NG tube present. There is opacification at the right lung apex. Gurmeet Fox MD Abdomen/Pelvis CT 08/27/162220 Signed Impressions: Service Date/Time: Saturday, August 27, 2016 22:54 - CONCLUSION: 1. No acute abnormality seen within the abdomen and pelvis. 2. Possible T8 vertebral body fracture seen at the anterior inferior aspect. 3. Nonspecific focal there is a sclerosis in the left pelvis. They may represent bone islands. Other causes for sclerotic lesions cannot be excluded. 4. 3.3 cm abdominal aortic aneurysm. 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
[2016-09-02] MEDS ORDERED: Vancomycin Consult Pharmacy 1 EA OTHER SCH (15:00)
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
[2016-09-02] MEDS: PIPERACIL-TAZO 4.5 GM PREMIX 100 ML IV SCH ×2 (15:12→20:14)
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
[2016-09-02] MEDS ORDERED: VANCOMYCIN INJ 2,000 MG in SODIUM CHLORID 0.9% 500 ML INJ 500 ML IV ONE (16:00)
[2016-09-02] MEDS: MAGNESIUM HYDROXIDE SUSP 30 ML CUP PO SCH (20:13)
[2016-09-02] MEDS: fentaNYL 2,500 MCG/NS 250 ML IV SCH (20:14)
[2016-09-03] VITALS (22 sets, daily range): BP systolic 129–167; BP diastolic 65–105; PULSE 75–103; RESP 14–24; TEMP 99.1–101.5; O2SAT 94–100
[2016-09-03] MEDS: METOPROLOL TARTRATE 5 MG/5 ML VIAL IV PUSH SCH ×4 (00:38→18:12)
[2016-09-03] MEDS: ACETAMINOPHEN 1000 MG/100 ML VIAL IV SCH ×3 (02:52→18:13)
[2016-09-03] MEDS: PIPERACIL-TAZO 4.5 GM PREMIX 100 ML IV SCH ×4 (03:31→20:19)
[2016-09-03] MEDS: VANCOMYCIN 1,000 MG/NS 250 ML IV SCH ×4 (04:22→16:09)
[2016-09-03 04:41] LABS: BASOPHIL # 0.1 TH/MM3 (0-0.2); BASOPHIL % 0.7 % (0.0-2.0); EOSINOPHIL # 0.6 TH/MM3 (0-0.4); HEMATOCRIT 32.2 % (39.0-51.0); HEMO FLAGS DIFF FINAL; LYMPH % 10.1 % (9.0-44.0); LYMPHOCYTE # 1.2 TH/MM3 (1.0-4.8); MEAN CELL VOLUME 88.9 FL (80.0-100.0); MEAN CORPUSCULAR HEMOGLOBIN 29.9 PG (27.0-34.0); MEAN CORPUSCULAR HGB CONC 33.6 % (32.0-36.0); MONO % 10.2 % (0.0-8.0); PLATELET COUNT 197 TH/MM3 (150-450); RED BLOOD COUNT 3.62 MIL/MM3 (4.50-5.90); RED CELL DISTRIBUTION WIDTH 14.2 % (11.6-17.2); WHITE BLOOD COUNT 12.1 TH/MM3 (4.0-11.0)
[2016-09-03 04:56] LABS: ALKALINE PHOSPHATASE 133 U/L (45-117); ALT (GPT) 125 U/L (12-78); ANION GAP 9 MEQ/L (5-15); AST (GOT) 60 U/L (15-37); BICARBONATE 28.8 MEQ/L (21.0-32.0); BLOOD UREA NITROGEN 40 MG/DL (7-18); CHLORIDE 112 MEQ/L (98-107); GLOMERULAR FILTRATION RATE 83 ML/MIN (>89); MAGNESIUM 2.9 MG/DL (1.5-2.5); SODIUM (NA) 150 MEQ/L (136-145); TOTAL BILIRUBIN ADULT 1.7 MG/DL (0.2-1.0)
--- NOTE | 2016-09-03 05:07 | RADRPT ---
EXAM DATE/TIME: 09/03/2016 04:28 [facility] COMPARISON: CHEST SINGLE AP, September 02, 2016, 4:59. INDICATIONS : Shortness of breath, possible pulmonary disease. MEDICAL HISTORY : Hypertension. Diabetes mellitus type II. SURGICAL HISTORY : None. ENCOUNTER: Subsequent ACUITY: 1 week PAIN SCORE: Non-responsive. LOCATION: Bilateral chest FINDINGS: Cardiomegaly and shallow lung volumes. Atelectasis at the right base. Right subclavian line, endotrac heal tube and NG tube are noted. Left lower lobe airspace disease and small left effusion. CONCLUSION: No significant change has occurred. Mathew Hoffman MD on September 03, 2016 at 5:06 Board Certified Radiologist. This report was verified electronically.
[2016-09-03] MEDS: INSULIN ASPART SUPPLEMENTAL SCALE SQ SCH ×4 (06:00→17:13)
[2016-09-03] MEDS: CHLORHEXIDINE 0.12% (ORAL KIT) 15 ML CUP MT SCH ×2 (07:43→20:18)
[2016-09-03] MEDS: levETIRAcetam INJ 500 MG in SODIUM CHLORIDE 0.9% INJ 100 ML IV SCH ×2 (07:57→20:18)
[2016-09-03] MEDS: LACTULOSE SYRUP 20 GM/30 ML CUP PO SCH (07:59)
[2016-09-03] MEDS: FUROSEMIDE 20 MG/2 ML VIAL IV PUSH SCH (08:15)
[2016-09-03] MEDS: DOCUSATE SODIUM 50 MG/SENNA 8.6 MG TAB PO SCH ×2 (08:15→20:19)
[2016-09-03] MEDS: SODIUM CHLORIDE 0.9% FLUSH 5 ML FLUSH IVF SCH ×2 (08:15→20:19)
[2016-09-03] MEDS: FAMOTIDINE 20 MG TAB PO SCH ×2 (08:15→20:19)
[2016-09-03] MEDS: SODIUM CHLOR 0.9% 1000 ML INJ 1,000 ML IV SCH (12:42)
--- NOTE | 2016-09-03 18:29 | PD.ORT.PN ---
Subjective Subjective Remarks Patient intubated and sedated. Family at bedside. Objective Vitals Vital Signs Date Time Temp Pulse Resp B/P Pulse Ox O2 Delivery O2 Flow Rate FiO2 09/03/16 18:00 100 09/03/16 17:00 100 40 09/03/16 16:00 99.6 90 15 151/88 100 09/03/16 16:00 40 09/03/16 16:00 90 09/03/16 14:20 100 40 09/03/16 14:00 87 09/03/16 12:00 96 09/03/16 12:00 40 09/03/16 12:00 99.7 96 24 146/89 100 Arterial Line 09/03/16 11:02 94 35 09/03/16 10:00 103 09/03/16 09:00 101.5 09/03/16 08:39 40 09/03/16 08:39 99 40 09/03/16 08:30 99 40 09/03/16 08:00 99.6 75 14 132/71 100 136/76 09/03/16 08:00 40 09/03/16 08:00 75 09/03/16 06:00 82 09/03/16 04:00 82 09/03/16 04:00 99.1 82 14 163/86 100 09/03/16 04:00 40 09/03/16 03:38 100 40 09/03/16 02:00 77 09/03/16 00:00 40 09/03/16 00:00 84 09/03/16 00:00 100.8 84 14 129/65 98 09/02/16 23:53 97 40 09/02/16 22:00 90 09/02/16 20:52 97 40 09/02/16 20:00 100.4 89 15 131/72 98 Automatic Cuff 09/02/16 20:00 82 09/02/16 20:00 40 I/O 09/02/16 09/02/16 09/02/16 09/03/16 09/03/16 09/03/16 07:00 15:00 23:00 07:00 15:00 23:00 Intake Total 763 ml 804 ml 1081 ml 846 ml 1056 ml Output Total 550 ml 1300 ml 700 ml 475 ml 1100 ml Balance 213 ml -496 ml 381 ml 371 ml -44 ml Intake IV Total 261 ml 343 ml 480 ml 506 ml 555 ml Tube Feeding 442 ml 431 ml 481 ml 340 ml 471 ml Other 60 ml 30 ml 120 ml 30 ml Output Urine Total 550 ml 1300 ml 700 ml 475 ml 1100 ml Tube Feeding Residual Discard 0 ml 0 ml 0 ml # Bowel Movements 2 1 0 2 0 Result Diagram: 09/03/16 0420 09/03/16 0420 Imaging Last 24 hours Impressions Chest X-Ray 08/28/16 0000 Signed Impressions: Service Date/Time: Sunday, August 28, 2016 00:39 - CONCLUSION: 1. Increased density at the bases being worse on the left representing contusion and/or atelectasis. 2. Reexpansion of the right upper lung. 3. Left clavicle fracture. Attila Benson MD Thoracic Spine CT 08/27/162220 Signed Impressions: Service Date/Time: Saturday, August 27, 2016 22:54 - CONCLUSION: 1. Subtle fracturing at the superior anterior aspect of the T6 vertebral body and the inferior T8 vertebral body without significant loss of height. The posterior vertebral body margins appear intact at these levels. 2. More prominent compression deformity at the superior aspect of L1 more fully described in CT of the lumbar spine report. Attila Benson MD Pelvis X-Ray 08/27/162220 Signed Impressions: Service Date/Time: Saturday, August 27, 2016 22:15 - CONCLUSION: No acute disease. Attila Benson MD Maxillofacial CT 08/27/162220 Signed Impressions: Service Date/Time: Saturday, August 27, 2016 22:44 - CONCLUSION: 1. Definite fracture at the left lateral orbit. 2. Lucency at the left inferior lateral orbit representing either a stricture or nondisplaced fracture. 3. Left periorbital soft tissue swelling. 4. Focal lucency at the base the left nasal bone which may a represent nondisplaced fracture. 5. Subarachnoid hemorrhage. Attila Benson MD Lumbar Spine CT 08/27/162220 Signed Impressions: Service Date/Time: Saturday, August 27, 2016 22:54 - CONCLUSION: 1. Fracturing of the superior L1 vertebral body with minimal retropulsion of the posterior superior aspect of the L1 vertebral body causing a mild impression on the thecal sac. There is also some increased density seen posterior to the mid and inferior aspect of the L1 vertebral body which may represent some mild anterior epidural hemorrhage. 2. Suspected fracturing at the left pars interarticularis region. 3. Mild L4-L5 disc bulge. Attila Benson MD Head CT 08/27/162220 Signed Impressions: Service Date/Time: Saturday, August 27, 2016 22:44 - CONCLUSION: 1. Small subdural hematoma over the left convexity measuring up to 6 mm in diameter with additional scattered subdural hemorrhage present as above. There is also subarachnoid hemorrhage bilaterally especially in the left sylvian fissure and scattered parenchymal subcentimeter contusions in the brain. There is no significant mass effect or midline shift on the current exam. Fluid in right frontal sinus. Left periorbital soft tissue swelling. Gurmeet Fox MD Chest X-Ray 08/27/162220 Signed Impressions: Service Date/Time: Saturday, August 27, 2016 22:15 - CONCLUSION: 1. Suspected bilateral rib fractures and a left clavicle fracture. 2. Suspected collapse of the right upper lobe versus a prominent area of contusion. There is also a lesser degree of increased parenchymal density like representing contusion at the left base. Attila Benson MD Chest CT 08/27/162220 Signed Impressions: Service Date/Time: Saturday, August 27, 2016 22:54 - CONCLUSION: 1. Upper sternal body fracture. 2. Acute right fourth and left sixth ribs fractures. 3. Left clavicle fracture 4. Suspected fracturing of the anterior inferior aspect of the T8 vertebral body without collapse. 5. Bilateral areas of suspected lung contusion. Attila Benson MD Cervical Spine CT 08/27/162220 Signed Impressions: Service Date/Time: Saturday, August 27, 2016 22:44 - CONCLUSION: 1. Moderate degenerative disc disease is present in the cervical spine. No acute fracture or spondylolisthesis. No prevertebral soft tissue swelling. Patient is intubated and NG tube present. There is opacification at the right lung apex. Gurmeet Fox MD Abdomen/Pelvis CT 08/27/162220 Signed Impressions: Service Date/Time: Saturday, August 27, 2016 22:54 - CONCLUSION: 1. No acute abnormality seen within the abdomen and pelvis. 2. Possible T8 vertebral body fracture seen at the anterior inferior aspect. 3. Nonspecific focal there is a sclerosis in the left pelvis. They may represent bone islands. Other causes for sclerotic lesions cannot be excluded. 4. 3.3 cm abdominal aortic aneurysm. Attila Benson MD Objective Remarks Palpable bump and swelling on left midshaft clavicle sternoclaviclular and acromioclavicular joints aligned Assessment & Plan Problem List: (1) Major neurocognitive disorder as late effect of traumatic brain injury with behavioral disturbance (2) Closed left clavicular fracture Assessment and Plan Neurosurgery management Monitor left clavicle fracture Surgical and non-operative fractures are both options Monitor Jay Turner Sep 03, 2016 18:29
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
[2016-09-03] MEDS: MAGNESIUM HYDROXIDE SUSP 30 ML CUP PO SCH (20:19)
[2016-09-03] MEDS: INSULIN DETEMIR 100 UNITS/ML VIAL SQ SCH (22:21)
[2016-09-04] VITALS (19 sets, daily range): BP systolic 121–167; BP diastolic 70–95; PULSE 71–122; RESP 14–26; TEMP 99.9–100.1; O2SAT 98–100
[2016-09-04] MEDS: INSULIN ASPART SUPPLEMENTAL SCALE SQ SCH ×3 (01:17→11:58)
[2016-09-04] MEDS: METOPROLOL TARTRATE 5 MG/5 ML VIAL IV PUSH SCH ×4 (01:18→17:35)
[2016-09-04] MEDS: PIPERACIL-TAZO 4.5 GM PREMIX 100 ML IV SCH ×2 (02:15→08:06)
[2016-09-04] MEDS ORDERED: PHARMACY ORDERED LAB XX ONE (03:45)
[2016-09-04 03:59] LABS: HEMATOCRIT 33.7 % (39.0-51.0); MEAN CELL VOLUME 89.2 FL (80.0-100.0); MEAN CORPUSCULAR HEMOGLOBIN 29.6 PG (27.0-34.0); MEAN CORPUSCULAR HGB CONC 33.2 % (32.0-36.0); PLATELET COUNT 256 TH/MM3 (150-450); RED BLOOD COUNT 3.78 MIL/MM3 (4.50-5.90); RED CELL DISTRIBUTION WIDTH 14.3 % (11.6-17.2); REVIEW FLAG FINAL; WHITE BLOOD COUNT 13.1 TH/MM3 (4.0-11.0)
[2016-09-04 04:24] LABS: ANION GAP 6 MEQ/L (5-15); AST (GOT) 65 U/L (15-37); BICARBONATE 33.5 MEQ/L (21.0-32.0); BLOOD UREA NITROGEN 43 MG/DL (7-18); CHLORIDE 113 MEQ/L (98-107); POTASSIUM 3.9 MEQ/L (3.5-5.1); SODIUM (NA) 152 MEQ/L (136-145)
[2016-09-04 04:26] LABS: ALKALINE PHOSPHATASE 160 U/L (45-117); ALT (GPT) 134 U/L (12-78); GLOMERULAR FILTRATION RATE 67 ML/MIN (>89); TOTAL BILIRUBIN ADULT 1.5 MG/DL (0.2-1.0)
[2016-09-04] MEDS: VANCOMYCIN 1,000 MG/NS 250 ML IV SCH ×2 (04:58)
[2016-09-04 05:07] LABS: BLOOD GAS BASE EXCESS 5.1 mmol/L (-2-2); BLOOD GAS CARBOXYHEMOGLOBIN 1.4 % (0-4); BLOOD GAS HCO3 29 mmol/L (22-26); BLOOD GAS METHEMOGLOBIN 0.8 % (0-2); BLOOD GAS O2 HGB SATURATION 95 % (90-100); BLOOD GAS OXYGEN CONTENT 15.8 Vol % (12.0-20.0); BLOOD GAS PCO2 41 mmHg (38-42); BLOOD GAS PO2 91 mmHg (61-120); BLOOD GAS TOTAL HGB 11.8 G/DL (12.0-16.0); CRITICAL VALUE NO; OXYGEN DEVICE VENTILATOR; TEMP CORR TO 98.6
[2016-09-04 05:08] LABS: DRAW SITE LT RADIAL; FIO2 40 %; NUMBER OF ARTERIAL PUNCTURES 1; STAT NO; ULNAR PULSE PRESENT; VENT SETTINGS PRVC14/600/0.9/+5
--- NOTE | 2016-09-04 06:46 | RADRPT ---
EXAM DATE/TIME: 09/04/2016 05:33 [facility] COMPARISON: CT THORAX W CONTRAST, August 27, 2016, 22:54. CHEST SINGLE AP, September 03, 2016, 4:28. INDICATIONS : Shortness of breath, possible pulmonary disease. MEDICAL HISTORY : Hypertension. Diabetes mellitus type II. SURGICAL HISTORY : None. ENCOUNTER: Subsequent ACUITY: 1 week PAIN SCORE: Non-responsive. LOCATION: Bilateral chest FINDINGS: Endotracheal tube tip in satisfactory position. NG enters stomach. Right central line in superior federico a cava. Bilateral mostly basilar airspace disease similar to September 03. Left clavicle fracture note d. Multiple left rib fractures. CONCLUSION: 1. Basilar airspace disease similar to September 03. Support apparatus unchanged. Gurmeet Fox MD on September 04, 2016 at 6:44 Board Certified Radiologist. This report was verified electronically.
[2016-09-04] MEDS: SODIUM CHLOR 0.9% 1000 ML INJ 1,000 ML IV SCH (07:53)
[2016-09-04] MEDS: LACTULOSE SYRUP 20 GM/30 ML CUP PO SCH (08:06)
[2016-09-04] MEDS: INSULIN DETEMIR 100 UNITS/ML VIAL SQ SCH ×2 (08:06→20:13)
[2016-09-04] MEDS: FUROSEMIDE 20 MG/2 ML VIAL IV PUSH SCH (08:06)
[2016-09-04] MEDS: CHLORHEXIDINE 0.12% (ORAL KIT) 15 ML CUP MT SCH ×2 (08:06→20:13)
[2016-09-04] MEDS: DOCUSATE SODIUM 50 MG/SENNA 8.6 MG TAB PO SCH ×2 (08:06→20:12)
[2016-09-04] MEDS: FAMOTIDINE 20 MG TAB PO SCH ×2 (08:06→20:12)
[2016-09-04] MEDS: SODIUM CHLORIDE 0.9% FLUSH 5 ML FLUSH IVF SCH ×2 (08:07→20:13)
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
[2016-09-04] MEDS ORDERED: EPINEPHrine HCL (1:10,000) 1 MG/10 ML SYRINGE ONE (09:35)
[2016-09-04] MEDS ORDERED: ATROPINE SULFATE 1 MG/10 ML SYRINGE ONE (09:35)
[2016-09-04] MEDS ORDERED: LIDOCAINE HCL 2% 100 MG/5 ML SYRINGE ONE (09:35)
[2016-09-04] MEDS ORDERED: GADODIAMIDE PF 287 MG/ML 20 ML VIAL (for RAD MRI) IV ONE (11:09)
--- NOTE | 2016-09-04 11:35 | RADRPT ---
EXAM DATE/TIME: 09/04/2016 10:01 [facility] COMPARISON: CT BRAIN W/O CONTRAST, August 29, 2016, 4:53. INDICATIONS: Altered mental status. TBI. CONTRAST: 20 cc Omniscan (gadodiamide) IV MEDICAL HISTORY: Hypertension. Diabetes mellitus type 2. Hypercholesterolemia. SURGICAL HISTORY: Brain bolt placed and removed. ENCOUNTER: Subsequent ACUITY: 2 weeks PAIN SCORE: Nonresponsive. LOCATION: Head TECHNIQUE: Multiplanar, multisequence MRI of the brain was performed both prior to and following the administrat ion of paramagnetic contrast. FINDINGS: Moderate motion artifact is present. In spite of motion artifact there are multiple small cortical hemorrhages over the left convexity. P arenchymal hemorrhages are seen in the left orbital frontal region. Parenchymal hemorrhages are seen in the right temporal region and deep in the right thalamus. There may be a small hemorrhage in the brain stem level of the cerebral peduncles. Ventricular size is appropriate. There are bifrontal subdural hygromas with some blood layering in t he occipital region on the left. Small amount of blood is layering on the tentorial edge on the left. CONCLUSION: Multiple parenchymal contusions as described above without mass effect. Bilateral subdural hygromas with some acute blood particularly on the left without significant mass effect. Edgardo Peoples MD FACR on September 04, 2016 at 11:13 Board Certified Radiologist. This report was verified electronically.
[2016-09-04] MEDS ORDERED: VANCOMYCIN INJ 2,000 MG in SODIUM CHLORID 0.9% 500 ML INJ 500 ML IV SCH (12:00)
[2016-09-04] MEDS ORDERED: VANCOMYCIN 1,000 MG/NS 250 ML IV SCH ×2 (12:00)
[2016-09-04] MEDS ORDERED: GLUCAGON 1 MG/ML VIAL OTHER PRN (13:15)
[2016-09-04] MEDS ORDERED: DEXTROSE 50% IN WATER 50 ML VIAL(D50) IV PUSH PRN (13:15)
[2016-09-04] MEDS: VANCOMYCIN INJ 1,300 MG in SODIUM CHLORID 0.9% 500 ML INJ 500 ML IV SCH (13:45)
[2016-09-04] MEDS: PIPERACIL-TAZO 3.375 GM PREMIX 50 ML IV SCH ×2 (13:46→20:13)
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
[2016-09-04] MEDS: INSULIN NovoLIN REGULAR SUPPLEMENTAL SCALE SQ SCH ×2 (16:30→21:00)
[2016-09-04] MEDS: oxyCODONE/ACETAMINOPHEN 10 MG/325 MG TAB PO/NG PRN ×2 (17:37→21:25)
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
[2016-09-04] MEDS: hydrALAZINE HCL 20 MG/ML VIAL IV PUSH PRN ×2 (18:57→23:33)
[2016-09-04] MEDS: MAGNESIUM HYDROXIDE SUSP 30 ML CUP PO SCH (20:12)
[2016-09-04] MEDS: ACETAMINOPHEN 325 MG TAB PO PRN (23:48)
[2016-09-05] VITALS (17 sets, daily range): BP systolic 150–160; BP diastolic 80–93; PULSE 76–120; RESP 12–21; TEMP 98.6–100.3; O2SAT 99–100
[2016-09-05] MEDS: SODIUM CHLOR 0.9% 1000 ML INJ 1,000 ML IV SCH (01:22)
[2016-09-05] MEDS: VANCOMYCIN INJ 1,300 MG in SODIUM CHLORID 0.9% 500 ML INJ 500 ML IV SCH ×2 (01:22→13:00)
[2016-09-05] MEDS: METOPROLOL TARTRATE 5 MG/5 ML VIAL IV PUSH SCH ×4 (01:22→20:43)
[2016-09-05] MEDS: oxyCODONE/ACETAMINOPHEN 10 MG/325 MG TAB PO/NG PRN ×4 (01:23→20:43)
[2016-09-05] MEDS: PIPERACIL-TAZO 3.375 GM PREMIX 50 ML IV SCH ×4 (02:45→20:44)
[2016-09-05 06:33] LABS: AUTOMATED NEUTROPHIL # 9.1 TH/MM3 (1.8-7.7); BASOPHIL # 0.1 TH/MM3 (0-0.2); BASOPHIL % 0.5 % (0.0-2.0); EOSINOPHIL # 0.6 TH/MM3 (0-0.4); EOSINOPHIL % 4.8 % (0.0-4.0); HEMATOCRIT 32.3 % (39.0-51.0); LYMPH % 14.6 % (9.0-44.0); LYMPHOCYTE # 1.9 TH/MM3 (1.0-4.8); MEAN CORPUSCULAR HEMOGLOBIN 29.9 PG (27.0-34.0); MEAN CORPUSCULAR HGB CONC 33.6 % (32.0-36.0); MONO % 10.7 % (0.0-8.0); NEUT % 69.4 % (16.0-70.0); PLATELET COUNT 307 TH/MM3 (150-450); RED BLOOD COUNT 3.63 MIL/MM3 (4.50-5.90); RED CELL DISTRIBUTION WIDTH 14.3 % (11.6-17.2); WHITE BLOOD COUNT 13.2 TH/MM3 (4.0-11.0)
[2016-09-05 06:45] LABS: MAGNESIUM 2.8 MG/DL (1.5-2.5); POTASSIUM 3.8 MEQ/L (3.5-5.1)
[2016-09-05 06:46] LABS: HEMO FLAGS AUTO DIFF
[2016-09-05] MEDS: LACTULOSE SYRUP 20 GM/30 ML CUP PO SCH (07:57)
[2016-09-05] MEDS: INSULIN NovoLIN REGULAR SUPPLEMENTAL SCALE SQ SCH ×4 (07:57→21:00)
[2016-09-05] MEDS: SODIUM CHLORIDE 0.9% FLUSH 5 ML FLUSH IVF SCH ×2 (07:58→20:44)
[2016-09-05] MEDS: FUROSEMIDE 20 MG/2 ML VIAL IV PUSH SCH (07:58)
[2016-09-05] MEDS: DOCUSATE SODIUM 50 MG/SENNA 8.6 MG TAB PO SCH ×2 (07:58→20:43)
[2016-09-05] MEDS: CHLORHEXIDINE 0.12% (ORAL KIT) 15 ML CUP MT SCH ×2 (07:58→20:00)
[2016-09-05] MEDS: INSULIN DETEMIR 100 UNITS/ML VIAL SQ SCH ×3 (07:59→20:44)
[2016-09-05] MEDS: FAMOTIDINE 20 MG TAB PO SCH ×2 (07:59→20:44)
[2016-09-05 08:32] LABS: BANDS 8 % (0-6); BASOPHILS 1 % (0-2); EOSINOPHILS 8 % (0-4); METAMYELOCYTES 2 % (0-1); MYELOCYTES 1 % (0-0); NEUTROPHIL # MANUAL DIFF 9.9 TH/MM3 (1.8-7.7); PLATELET ESTIMATE SMEAR NORMAL (NORMAL); PLATELET MORPHOLOGY NORMAL (NORMAL); POLYS (SEG NEUTROPHILS) 64 % (16-70); SCAN/DIFF FINAL DIFF MANUAL; WBC DIFF SAMPLE 100
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
[2016-09-05] MEDS ORDERED: LACTULOSE SYRUP 20 GM/30 ML CUP PO PRN (10:15)
[2016-09-05] MEDS: ARTIFICIAL TEARS OPTH OINT 3.5 APPLIC/3.5 GM TUBO EACH EYE SCH ×2 (10:38→20:44)
[2016-09-05] MEDS: ACETAMINOPHEN 325 MG TAB PO PRN (10:39)
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
[2016-09-05] MEDS: MAGNESIUM HYDROXIDE SUSP 30 ML CUP PO SCH (20:44)
[2016-09-06] VITALS (18 sets, daily range): BP systolic 116–166; BP diastolic 72–94; PULSE 82–112; RESP 14–21; TEMP 98.5–102; O2SAT 98–100
[2016-09-06] MEDS ORDERED: PHARMACY ORDERED LAB XX ONE (00:45)
[2016-09-06] MEDS: METOPROLOL TARTRATE 5 MG/5 ML VIAL IV PUSH SCH ×4 (00:49→18:20)
[2016-09-06] MEDS: VANCOMYCIN INJ 1,300 MG in SODIUM CHLORID 0.9% 500 ML INJ 500 ML IV SCH (00:49)
[2016-09-06 01:38] LABS: ALKALINE PHOSPHATASE 172 U/L (45-117); VANCOMYCIN TROUGH 13.5 MCG/ML (5.0-10.0)
[2016-09-06 01:42] LABS: ALT (GPT) 133 U/L (12-78); ANION GAP 9 MEQ/L (5-15); AST (GOT) 72 U/L (15-37); BICARBONATE 31.2 MEQ/L (21.0-32.0); BLOOD UREA NITROGEN 39 MG/DL (7-18); CHLORIDE 115 MEQ/L (98-107); GLOMERULAR FILTRATION RATE 73 ML/MIN (>89); SODIUM (NA) 155 MEQ/L (136-145)
[2016-09-06] MEDS: PIPERACIL-TAZO 3.375 GM PREMIX 50 ML IV SCH ×4 (02:27→20:16)
[2016-09-06 04:48] LABS: AUTOMATED NEUTROPHIL # 8.5 TH/MM3 (1.8-7.7); BASOPHIL # 0.1 TH/MM3 (0-0.2); BASOPHIL % 0.7 % (0.0-2.0); EOSINOPHIL # 0.9 TH/MM3 (0-0.4); EOSINOPHIL % 6.7 % (0.0-4.0); HEMATOCRIT 30.8 % (39.0-51.0); LYMPH % 18.2 % (9.0-44.0); LYMPHOCYTE # 2.3 TH/MM3 (1.0-4.8); MEAN CELL VOLUME 90.2 FL (80.0-100.0); MEAN CORPUSCULAR HEMOGLOBIN 29.7 PG (27.0-34.0); MONO % 8.9 % (0.0-8.0); NEUT % 65.5 % (16.0-70.0); PLATELET COUNT 314 TH/MM3 (150-450); RED BLOOD COUNT 3.42 MIL/MM3 (4.50-5.90); RED CELL DISTRIBUTION WIDTH 14.1 % (11.6-17.2); WHITE BLOOD COUNT 12.9 TH/MM3 (4.0-11.0)
[2016-09-06 04:57] LABS: HEMO FLAGS AUTO DIFF
[2016-09-06 05:11] LABS: BLOOD GAS BASE EXCESS 4.5 mmol/L (-2-2); BLOOD GAS CARBOXYHEMOGLOBIN 1.5 % (0-4); BLOOD GAS HCO3 28 mmol/L (22-26); BLOOD GAS METHEMOGLOBIN 0.6 % (0-2); BLOOD GAS O2 HGB SATURATION 96 % (90-100); BLOOD GAS OXYGEN CONTENT 14.2 Vol % (12.0-20.0); BLOOD GAS PCO2 37 mmHg (38-42); BLOOD GAS PO2 91 mmHg (61-120); BLOOD GAS TOTAL HGB 10.5 G/DL (12.0-16.0); CRITICAL VALUE NO; OXYGEN DEVICE VENTILATOR; TEMP CORR TO 98.6
[2016-09-06 05:12] LABS: DRAW SITE RT RADIAL; FIO2 40 %; NUMBER OF ARTERIAL PUNCTURES 1; STAT NO; ULNAR PULSE PRESENT; VENT SETTINGS PRVC/AC
[2016-09-06] MEDS: INSULIN NovoLIN REGULAR SUPPLEMENTAL SCALE SQ SCH ×4 (05:27→20:17)
[2016-09-06 07:13] LABS: BANDS 10 % (0-6); EOSINOPHILS 5 % (0-4); MYELOCYTES 2 % (0-0); NEUTROPHIL # MANUAL DIFF 9.3 TH/MM3 (1.8-7.7); PLATELET ESTIMATE SMEAR NORMAL (NORMAL); PLATELET MORPHOLOGY NORMAL (NORMAL); POLYS (SEG NEUTROPHILS) 60 % (16-70); WBC DIFF SAMPLE 100
[2016-09-06 07:14] LABS: SCAN/DIFF FINAL DIFF MANUAL
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
[2016-09-06] MEDS: SODIUM CHLORIDE 0.9% FLUSH 5 ML FLUSH IVF SCH ×2 (09:57→20:17)
[2016-09-06] MEDS: CHLORHEXIDINE 0.12% (ORAL KIT) 15 ML CUP MT SCH ×2 (09:57→20:00)
[2016-09-06] MEDS: ARTIFICIAL TEARS OPTH OINT 3.5 APPLIC/3.5 GM TUBO EACH EYE SCH ×2 (09:57→20:17)
[2016-09-06] MEDS: INSULIN DETEMIR 100 UNITS/ML VIAL SQ SCH ×2 (10:26→20:16)
[2016-09-06] MEDS: FAMOTIDINE 20 MG TAB PO SCH ×2 (10:26→20:17)
[2016-09-06] MEDS: FUROSEMIDE 20 MG/2 ML VIAL IV PUSH SCH (10:26)
[2016-09-06] MEDS: DOCUSATE SODIUM 50 MG/SENNA 8.6 MG TAB PO SCH ×2 (10:26→20:16)
[2016-09-06] MEDS: ACETAMINOPHEN 325 MG TAB PO PRN (10:59)
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
[2016-09-06] MEDS: VANCOMYCIN INJ 1,500 MG in SODIUM CHLORID 0.9% 500 ML INJ 500 ML IV SCH (14:05)
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
--- NOTE | 2016-09-06 19:15 | HHI.PR ---
Subjective Subjective Comments Daughter at bedside. Patient with eyes open on vent. G-tube in place. No pain behaviors observed. Allergies: Coded Allergies: No Known Allergies (Unverified , 08/28/16) Review of Systems All other ROS: Unable to obtain Exam I&O / VS 09/05/16 09/05/16 09/06/16 15:00 23:00 07:00 Intake Total 787 ml 1062 ml 1023 ml Output Total 1100 ml 1000 ml 900 ml Balance -313 ml 62 ml 123 ml Intake IV Total 338 ml 692 ml 597 ml Tube Feeding 449 ml 370 ml 426 ml Output Urine Total 1100 ml 1000 ml 900 ml # Bowel Movements 0 0 Vital Signs Date Time Temp Pulse Resp B/P Pulse Ox O2 Delivery O2 Flow Rate FiO2 09/06/16 18:00 94 09/06/16 17:20 100 40 09/06/16 16:00 98.5 84 21 116/72 100 09/06/16 16:00 40 09/06/16 16:00 84 09/06/16 14:00 100 09/06/16 12:00 99.2 104 19 119/73 99 09/06/16 12:00 104 09/06/16 12:00 40 09/06/16 11:31 99 40 09/06/16 10:00 112 09/06/16 08:07 40 09/06/16 08:07 98 40 09/06/16 08:00 102.0 108 21 152/90 98 09/06/16 08:00 40 09/06/16 08:00 108 09/06/16 06:00 91 09/06/16 04:00 93 09/06/16 04:00 98.9 93 14 151/86 100 09/06/16 04:00 40 09/06/16 03:58 99 40 09/06/16 02:00 84 09/06/16 00:12 100 40 09/06/16 00:00 40 09/06/16 00:00 98.9 82 14 166/94 100 09/06/16 00:00 82 09/05/16 22:00 99.0 76 14 160/80 100 09/05/16 22:00 76 09/05/16 22:00 40 09/05/16 21:50 100 40 General: Intubated Musculoskeletal: ROM (Grossly within normal limits), Other (SCDs in place) Neurologic: Pupils (PERRLA), EOM (Tracks right and to midline but not fully to the left) Motor: Right Upper Extremity (follow simple one-step commands 50% the time to 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), Left Upper Extremity (not following commands), Right Lower Extremity (not following commands), Left Lower Extremity (not following commands) Objective Micro and Labs Laboratory Tests Test 09/06/16 09/06/16 09/06/16 00:50 04:00 04:58 Sodium Level 155 Potassium Level 4.0 Chloride Level 115 Carbon Dioxide Level 31.2 Anion Gap 9 Blood Urea Nitrogen 39 Creatinine 1.02 Estimat Glomerular Filtration 73 Rate Random Glucose 239 Calcium Level 8.6 Total Bilirubin 1.0 Aspartate Amino Transf 72 (AST/SGOT) Alanine Aminotransferase 133 (ALT/SGPT) Alkaline Phosphatase 172 Total Protein 5.9 Albumin 2.2 Vancomycin Level Trough 13.5 White Blood Count 12.9 Red Blood Count 3.42 Hemoglobin 10.2 Hematocrit 30.8 Mean Corpuscular Volume 90.2 Mean Corpuscular Hemoglobin 29.7 Mean Corpuscular Hemoglobin 33.0 Concent Red Cell Distribution Width 14.1 Platelet Count 314 Mean Platelet Volume 9.7 Neutrophils (%) (Auto) 65.5 Lymphocytes (%) (Auto) 18.2 Monocytes (%) (Auto) 8.9 Eosinophils (%) (Auto) 6.7 Basophils (%) (Auto) 0.7 Neutrophils # (Auto) 8.5 Lymphocytes # (Auto) 2.3 Monocytes # (Auto) 1.1 Eosinophils # (Auto) 0.9 Basophils # (Auto) 0.1 CBC Comment AUTO DIFF Differential Total Cells 100 Counted Neutrophils % (Manual) 60 Band Neutrophils % 10 Lymphocytes % 13 Monocytes % 10 Eosinophils % 5 Neutrophils # (Manual) 9.3 Myelocytes 2 Differential Comment FINAL DIFF MANUAL Platelet Estimate NORMAL Platelet Morphology Comment NORMAL Blood Gas Puncture Site RT RADIAL Blood Gas Patient Temperature 98.6 Blood Gas HCO3 28 Blood Gas Base Excess 4.5 Blood Gas Oxygen Saturation 96 Arterial Blood pH 7.49 Arterial Blood Partial 37 Pressure CO2 Arterial Blood Partial 91 Pressure O2 Arterial Blood Oxygen Content 14.2 Arterial Blood 1.5 Carboxyhemoglobin Arterial Blood Methemoglobin 0.6 Blood Gas Hemoglobin 10.5 Oxygen Delivery Device VENTILATOR Blood Gas Ventilator Setting PRVC/AC Blood Gas Inspired Oxygen 40 Assessment and Plan Diagnosis: (1) Traumatic brain injury Qualified Code: S06.9X9A - Traumatic brain injury, with loss of consciousness of unspecified duration, initial encounter Assessment 1. Severe traumatic brain injury currently intubated and sedated [facility] level 3 2. Associated injuries including bilateral multiple rib fractures, bilateral pulmonary contusions, left clavicle fracture and sternal fracture 3. Hypertension 4. Diabetes mellitus 5. Hypercholesterolemia 6. Previous RI 7. Chronic back problems Plan 1. PT/OT of following for range of motion. Progress as neurological/medical status allows 2. Appreciate neuropsychology input 3. Case management working on discharge planning likely to inpatient rehabilitation 4. Will start Amantadine 100 mg q 7am and 12 noon to help with cognitive level. 5. Will continue to follow Bernadine Linda MD Sep 06, 2016 19:15
[2016-09-06] MEDS: MAGNESIUM HYDROXIDE SUSP 30 ML CUP PO SCH (20:16)
[2016-09-07] VITALS (18 sets, daily range): BP systolic 122–149; BP diastolic 70–86; PULSE 75–99; RESP 15–30; TEMP 99–100.2; O2SAT 95–100
[2016-09-07] MEDS: METOPROLOL TARTRATE 5 MG/5 ML VIAL IV PUSH SCH ×4 (00:19→18:07)
[2016-09-07] MEDS: VANCOMYCIN INJ 1,500 MG in SODIUM CHLORID 0.9% 500 ML INJ 500 ML IV SCH (00:19)
[2016-09-07] MEDS: PIPERACIL-TAZO 3.375 GM PREMIX 50 ML IV SCH ×4 (03:09→21:47)
[2016-09-07 04:52] LABS: AUTOMATED NEUTROPHIL # 9.6 TH/MM3 (1.8-7.7); BASOPHIL # 0.1 TH/MM3 (0-0.2); EOSINOPHIL # 0.7 TH/MM3 (0-0.4); EOSINOPHIL % 4.9 % (0.0-4.0); HEMATOCRIT 31.9 % (39.0-51.0); HEMO FLAGS AUTO DIFF; LYMPH % 14.4 % (9.0-44.0); LYMPHOCYTE # 1.9 TH/MM3 (1.0-4.8); MEAN CORPUSCULAR HEMOGLOBIN 30.3 PG (27.0-34.0); MEAN CORPUSCULAR HGB CONC 33.7 % (32.0-36.0); MONO % 8.9 % (0.0-8.0); NEUT % 70.8 % (16.0-70.0); PLATELET COUNT 316 TH/MM3 (150-450); RED BLOOD COUNT 3.55 MIL/MM3 (4.50-5.90); RED CELL DISTRIBUTION WIDTH 14.4 % (11.6-17.2); WHITE BLOOD COUNT 13.5 TH/MM3 (4.0-11.0)
[2016-09-07 05:14] LABS: ALKALINE PHOSPHATASE 206 U/L (45-117); ALT (GPT) 169 U/L (12-78); ANION GAP 9 MEQ/L (5-15); AST (GOT) 105 U/L (15-37); BICARBONATE 28.4 MEQ/L (21.0-32.0); BLOOD UREA NITROGEN 37 MG/DL (7-18); CHLORIDE 115 MEQ/L (98-107); GLOMERULAR FILTRATION RATE 59 ML/MIN (>89); MAGNESIUM 2.8 MG/DL (1.5-2.5); SODIUM (NA) 152 MEQ/L (136-145)
[2016-09-07] MEDS: INSULIN NovoLIN REGULAR SUPPLEMENTAL SCALE SQ SCH ×4 (06:19→21:48)
[2016-09-07] MEDS: AMANTADINE HCL SOLN 100 MG/10 ML UDC TUBE SCH ×2 (06:19→13:03)
[2016-09-07 07:23] LABS: BANDS 9 % (0-6); EOSINOPHILS 2 % (0-4); METAMYELOCYTES 1 % (0-1); MYELOCYTES 1 % (0-0); NEUTROPHIL # MANUAL DIFF 10.4 TH/MM3 (1.8-7.7); PLATELET ESTIMATE SMEAR NORMAL (NORMAL); PLATELET MORPHOLOGY NORMAL (NORMAL); POLYS (SEG NEUTROPHILS) 66 % (16-70); SCAN/DIFF FINAL DIFF MANUAL; WBC DIFF SAMPLE 100
[2016-09-07] MEDS: FUROSEMIDE 20 MG/2 ML VIAL IV PUSH SCH (07:56)
[2016-09-07] MEDS: SODIUM CHLORIDE 0.9% FLUSH 5 ML FLUSH IVF SCH ×2 (07:56→21:49)
[2016-09-07] MEDS: DOCUSATE SODIUM 50 MG/SENNA 8.6 MG TAB PO SCH ×2 (07:57→21:48)
[2016-09-07] MEDS: FAMOTIDINE 20 MG TAB PO SCH ×2 (07:57→21:48)
[2016-09-07] MEDS: oxyCODONE/ACETAMINOPHEN 10 MG/325 MG TAB PO/NG PRN ×2 (08:01→13:04)
[2016-09-07] MEDS: ARTIFICIAL TEARS OPTH OINT 3.5 APPLIC/3.5 GM TUBO EACH EYE SCH ×2 (08:01→21:49)
[2016-09-07] MEDS: CHLORHEXIDINE 0.12% (ORAL KIT) 15 ML CUP MT SCH ×2 (08:01→21:49)
[2016-09-07] MEDS: INSULIN DETEMIR 100 UNITS/ML VIAL SQ SCH ×2 (08:06→21:48)
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
--- NOTE | 2016-09-07 16:52 | RADRPT ---
EXAM DATE/TIME: 09/07/2016 16:03 [facility] COMPARISON: No previous studies available for comparison. INDICATIONS : Evaluate fracture. MEDICAL HISTORY : None. SURGICAL HISTORY : None. ENCOUNTER: Initial ACUITY: 1 week PAIN SCORE: Non-responsive. LOCATION: Left clavicle FINDINGS: Two-view left shoulder demonstrates there is a transverse fracture to the midshaft left clavicle. It is not significantly displaced. Glenohumeral joint is preserved. Ribs are intact. CONCLUSION: Two-view left shoulder demonstrates there is a transverse fracture to the midshaft le ft clavicle. It is not significantly displaced. Glenohumeral joint is preserved. Ribs are intact. Anatoly Patel MD on September 07, 2016 at 16:42 Board Certified Radiologist. This report was verified electronically.
[2016-09-07] MEDS: MAGNESIUM HYDROXIDE SUSP 30 ML CUP PO SCH (21:47)
[2016-09-08] VITALS (16 sets, daily range): BP systolic 129–154; BP diastolic 74–86; PULSE 66–92; RESP 13–24; TEMP 98.8–99.9; O2SAT 94–99
[2016-09-08] MEDS ORDERED: PHARMACY ORDERED LAB XX ONE (00:45)
[2016-09-08] MEDS: METOPROLOL TARTRATE 5 MG/5 ML VIAL IV PUSH SCH ×4 (01:22→18:11)
[2016-09-08] MEDS: ACETAMINOPHEN 325 MG TAB PO PRN (03:41)
[2016-09-08] MEDS: oxyCODONE/ACETAMINOPHEN 10 MG/325 MG TAB PO/NG PRN (03:41)
[2016-09-08] MEDS: PIPERACIL-TAZO 3.375 GM PREMIX 50 ML IV SCH ×4 (03:41→20:16)
[2016-09-08 06:02] LABS: BASOPHIL # 0.1 TH/MM3 (0-0.2); BASOPHIL % 0.6 % (0.0-2.0); EOSINOPHIL # 0.7 TH/MM3 (0-0.4); EOSINOPHIL % 4.3 % (0.0-4.0); HEMATOCRIT 31.5 % (39.0-51.0); LYMPH % 13.4 % (9.0-44.0); LYMPHOCYTE # 2.2 TH/MM3 (1.0-4.8); MEAN CELL VOLUME 89.3 FL (80.0-100.0); MEAN CORPUSCULAR HEMOGLOBIN 30.2 PG (27.0-34.0); MEAN CORPUSCULAR HGB CONC 33.8 % (32.0-36.0); MONO % 6.8 % (0.0-8.0); NEUT % 74.9 % (16.0-70.0); PLATELET COUNT 338 TH/MM3 (150-450); RED BLOOD COUNT 3.53 MIL/MM3 (4.50-5.90); RED CELL DISTRIBUTION WIDTH 14.1 % (11.6-17.2); WHITE BLOOD COUNT 16.1 TH/MM3 (4.0-11.0)
[2016-09-08 06:12] LABS: HEMO FLAGS AUTO DIFF
[2016-09-08 06:29] LABS: ANION GAP 9 MEQ/L (5-15); AST (GOT) 63 U/L (15-37); BICARBONATE 29.4 MEQ/L (21.0-32.0); BLOOD UREA NITROGEN 38 MG/DL (7-18); CHLORIDE 115 MEQ/L (98-107); GLOMERULAR FILTRATION RATE 63 ML/MIN (>89); MAGNESIUM 2.9 MG/DL (1.5-2.5); POTASSIUM 4.1 MEQ/L (3.5-5.1); SODIUM (NA) 153 MEQ/L (136-145)
[2016-09-08 06:32] LABS: ALKALINE PHOSPHATASE 195 U/L (45-117); ALT (GPT) 144 U/L (12-78); TOTAL BILIRUBIN ADULT 1.1 MG/DL (0.2-1.0)
[2016-09-08] MEDS: AMANTADINE HCL SOLN 100 MG/10 ML UDC TUBE SCH ×2 (06:34→12:00)
[2016-09-08] MEDS: INSULIN NovoLIN REGULAR SUPPLEMENTAL SCALE SQ SCH ×4 (06:35→23:05)
[2016-09-08 06:54] LABS: BANDS 2 % (0-6); BASOPHILS 1 % (0-2); EOSINOPHILS 4 % (0-4); METAMYELOCYTES 1 % (0-1); MYELOCYTES 1 % (0-0); PLATELET ESTIMATE SMEAR NORMAL (NORMAL); PLATELET MORPHOLOGY NORMAL (NORMAL); POLYS (SEG NEUTROPHILS) 77 % (16-70); SCAN/DIFF FINAL DIFF MANUAL; WBC DIFF SAMPLE 100
[2016-09-08] MEDS: CHLORHEXIDINE 0.12% (ORAL KIT) 15 ML CUP MT SCH (08:38)
[2016-09-08] MEDS: DOCUSATE SODIUM 50 MG/SENNA 8.6 MG TAB PO SCH ×2 (08:39→20:44)
[2016-09-08] MEDS: SODIUM CHLORIDE 0.9% FLUSH 5 ML FLUSH IVF SCH ×2 (08:39→21:00)
[2016-09-08] MEDS: FAMOTIDINE 20 MG TAB PO SCH ×2 (08:39→20:44)
[2016-09-08] MEDS: INSULIN DETEMIR 100 UNITS/ML VIAL SQ SCH ×2 (08:39→21:00)
[2016-09-08] MEDS: ARTIFICIAL TEARS OPTH OINT 3.5 APPLIC/3.5 GM TUBO EACH EYE SCH ×2 (08:39→20:44)
[2016-09-08] MEDS: FUROSEMIDE 20 MG/2 ML VIAL IV PUSH SCH (08:40)
[2016-09-08] MEDS: metFORMIN HCL 500 MG TAB PO SCH ×2 (11:34→17:15)
[2016-09-08] MEDS: amLODIPine BESYLATE 5 MG TAB PO SCH (11:34)
[2016-09-08] MEDS: LISINOPRIL 10 MG TAB PO SCH (11:38)
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
[2016-09-08] MEDS: VANCOMYCIN INJ 1,500 MG in SODIUM CHLORID 0.9% 500 ML INJ 500 ML IV SCH (12:41)
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
[2016-09-08] MEDS: DEXT 5%-NACL 0.45% 1000 ML INJ 1,000 ML IV SCH (14:55)
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
--- NOTE | 2016-09-08 17:54 | HHI.PR ---
Subjective Subjective Comments Patient does not appear to be in any distress. Awake. No agitation noted Allergies: Coded Allergies: No Known Allergies (Unverified , 08/28/16) Review of Systems All other ROS: ROS reviewed as documented in chart, Unable to obtain Exam I&O / VS 09/07/16 09/07/16 09/08/16 15:00 23:00 07:00 Intake Total 503 ml 679 ml 611 ml Output Total 1100 ml 800 ml 600 ml Balance -597 ml -121 ml 11 ml Intake IV Total 111 ml 134 ml 135 ml Tube Feeding 332 ml 485 ml 416 ml Other 60 ml 60 ml 60 ml Output Urine Total 1100 ml 800 ml 600 ml Tube Feeding Residual Discard 0 ml 0 ml # Bowel Movements 0 0 0 Vital Signs Date Time Temp Pulse Resp B/P Pulse Ox O2 Delivery O2 Flow Rate FiO2 09/08/16 16:00 99.3 78 24 147/78 94 09/08/16 16:00 78 09/08/16 14:00 79 09/08/16 12:00 84 09/08/16 12:00 98.8 84 20 154/86 98 09/08/16 10:00 79 09/08/16 08:07 99 40 09/08/16 08:00 66 09/08/16 08:00 98.8 66 13 129/74 98 09/08/16 08:00 40 09/08/16 06:00 75 09/08/16 05:05 97 40 09/08/16 04:00 99.8 78 18 147/80 96 09/08/16 04:00 40 09/08/16 04:00 78 09/08/16 02:00 79 09/08/16 00:34 96 40 09/08/16 00:00 40 09/08/16 00:00 92 09/08/16 00:00 99.9 92 18 136/86 96 09/07/16 22:00 79 09/07/16 20:28 96 40 09/07/16 20:00 40 09/07/16 20:00 79 09/07/16 20:00 99.3 80 20 136/80 97 09/07/16 18:00 87 General: No acute distress Musculoskeletal: ROM (Grossly within normal limits), Other (SCDs in place) Psychiatric: Cooperative Orientation: oriented to Self, oriented to Situation Neurologic: Other (follows simple commands to move all extremities) Objective Micro and Labs Laboratory Tests Test 09/08/16 05:19 White Blood Count 16.1 Red Blood Count 3.53 Hemoglobin 10.7 Hematocrit 31.5 Mean Corpuscular Volume 89.3 Mean Corpuscular Hemoglobin 30.2 Mean Corpuscular Hemoglobin 33.8 Concent Red Cell Distribution Width 14.1 Platelet Count 338 Mean Platelet Volume 9.7 Neutrophils (%) (Auto) 74.9 Lymphocytes (%) (Auto) 13.4 Monocytes (%) (Auto) 6.8 Eosinophils (%) (Auto) 4.3 Basophils (%) (Auto) 0.6 Neutrophils # (Auto) 12.0 Lymphocytes # (Auto) 2.2 Monocytes # (Auto) 1.1 Eosinophils # (Auto) 0.7 Basophils # (Auto) 0.1 CBC Comment AUTO DIFF Differential Total Cells 100 Counted Neutrophils % (Manual) 77 Band Neutrophils % 2 Lymphocytes % 9 Monocytes % 5 Eosinophils % 4 Basophils % 1 Neutrophils # (Manual) 13.0 Metamyelocytes 1 Myelocytes 1 Differential Comment FINAL DIFF MANUAL Platelet Estimate NORMAL Platelet Morphology Comment NORMAL Red Cell Morphology Comment NORMAL Sodium Level 153 Potassium Level 4.1 Chloride Level 115 Carbon Dioxide Level 29.4 Anion Gap 9 Blood Urea Nitrogen 38 Creatinine 1.16 Estimat Glomerular Filtration 63 Rate Random Glucose 233 Calcium Level 8.7 Phosphorus Level 3.5 Magnesium Level 2.9 Total Bilirubin 1.1 Aspartate Amino Transf 63 (AST/SGOT) Alanine Aminotransferase 144 (ALT/SGPT) Alkaline Phosphatase 195 Total Protein 6.5 Albumin 2.4 Random Vancomycin Level 6.6 Assessment and Plan Diagnosis: (1) Traumatic brain injury Qualified Code: S06.9X9D - Traumatic brain injury, with loss of consciousness of unspecified duration, subsequent encounter Assessment 1. Severe traumatic brain injury currently intubated and sedated [place] level 3 -4 2. Associated injuries including bilateral multiple rib fractures, bilateral pulmonary contusions, left clavicle fracture and sternal fracture 3. Hypertension 4. Diabetes mellitus 5. Hypercholesterolemia 6. Previous [place] 7. Chronic back problems Plan 1. PT/OT of following for range of motion. Currently dependent for ADLs. Progress as neurological/medical status allows 2. Appreciate neuropsychology input 3. Speech therapy evaluating swallowing currently nothing by mouth 4. Case management working on discharge planning likely to inpatient rehabilitation 5. Tolerating Amantadine 100 mg q 7am and 12 noon to help with cognitive level. 6. Will continue to follow Bernadine Linda MD Sep 08, 2016 17:54
[2016-09-08] MEDS: MAGNESIUM HYDROXIDE SUSP 30 ML CUP PO SCH (20:43)
[2016-09-08] MEDS: ATORVASTATIN 40 MG TAB PO SCH (20:43)
[2016-09-09] VITALS (14 sets, daily range): BP systolic 130–154; BP diastolic 70–76; PULSE 66–93; RESP 8–25; TEMP 97.6–98.6; O2SAT 95–98
[2016-09-09] MEDS: VANCOMYCIN INJ 1,500 MG in SODIUM CHLORID 0.9% 500 ML INJ 500 ML IV SCH ×2 (01:46→11:40)
[2016-09-09] MEDS: METOPROLOL TARTRATE 5 MG/5 ML VIAL IV PUSH SCH ×2 (01:46→06:10)
[2016-09-09] MEDS ORDERED: MORPHINE SULFATE 4 MG/ML INJ IV PRN (03:00)
[2016-09-09] MEDS: DEXT 5%-NACL 0.45% 1000 ML INJ 1,000 ML IV SCH ×3 (03:50→20:02)
[2016-09-09] MEDS: PIPERACIL-TAZO 3.375 GM PREMIX 50 ML IV SCH ×4 (04:45→20:01)
[2016-09-09 05:32] LABS: AUTOMATED NEUTROPHIL # 11.5 TH/MM3 (1.8-7.7); BASOPHIL # 0.1 TH/MM3 (0-0.2); BASOPHIL % 0.6 % (0.0-2.0); EOSINOPHIL # 0.7 TH/MM3 (0-0.4); EOSINOPHIL % 4.5 % (0.0-4.0); HEMATOCRIT 32.7 % (39.0-51.0); HEMO FLAGS DIFF FINAL; LYMPH % 15.2 % (9.0-44.0); LYMPHOCYTE # 2.5 TH/MM3 (1.0-4.8); MEAN CELL VOLUME 90.5 FL (80.0-100.0); MEAN CORPUSCULAR HEMOGLOBIN 29.2 PG (27.0-34.0); MEAN CORPUSCULAR HGB CONC 32.3 % (32.0-36.0); NEUT % 71.7 % (16.0-70.0); PLATELET COUNT 334 TH/MM3 (150-450); RED BLOOD COUNT 3.62 MIL/MM3 (4.50-5.90); RED CELL DISTRIBUTION WIDTH 14.3 % (11.6-17.2); WHITE BLOOD COUNT 16.1 TH/MM3 (4.0-11.0)
[2016-09-09 05:43] LABS: ALT (GPT) 116 U/L (12-78); ANION GAP 8 MEQ/L (5-15); AST (GOT) 59 U/L (15-37); BICARBONATE 27.9 MEQ/L (21.0-32.0); BLOOD UREA NITROGEN 31 MG/DL (7-18); CHLORIDE 113 MEQ/L (98-107); GLOMERULAR FILTRATION RATE 75 ML/MIN (>89); MAGNESIUM 2.7 MG/DL (1.5-2.5); POTASSIUM 3.8 MEQ/L (3.5-5.1); SODIUM (NA) 149 MEQ/L (136-145)
[2016-09-09 05:45] LABS: ALKALINE PHOSPHATASE 196 U/L (45-117); TOTAL BILIRUBIN ADULT 1.5 MG/DL (0.2-1.0)
[2016-09-09] MEDS: AMANTADINE HCL SOLN 100 MG/10 ML UDC TUBE SCH ×2 (05:56→12:00)
[2016-09-09] MEDS: INSULIN NovoLIN REGULAR SUPPLEMENTAL SCALE SQ SCH ×4 (06:10→20:01)
--- NOTE | 2016-09-09 06:49 | RADRPT ---
EXAM DATE/TIME: 09/09/2016 05:10 [facility] COMPARISON: CHEST SINGLE AP, September 06, 2016, 17:56. INDICATIONS : Shortness of breath. MEDICAL HISTORY : Hypertension. Diabetes mellitus type II. SURGICAL HISTORY : None. ENCOUNTER: Subsequent ACUITY: 2 weeks PAIN SCORE: Non-responsive. LOCATION: Bilateral chest FINDINGS: There has been interval extubation. Nasogastric tube has been removed. There has been near complete r esolution of infiltrates. Cardiac contours are stable. CONCLUSION: Continued improvement in aeration Attila Beltran MD on September 09, 2016 at 6:46 Board Certified Radiologist. This report was verified electronically.
[2016-09-09] MEDS: LISINOPRIL 10 MG TAB PO SCH (09:00)
[2016-09-09] MEDS: INSULIN DETEMIR 100 UNITS/ML VIAL SQ SCH (09:00)
[2016-09-09] MEDS: FAMOTIDINE 20 MG TAB PO SCH ×2 (09:00→20:01)
[2016-09-09] MEDS: amLODIPine BESYLATE 5 MG TAB PO SCH (09:00)
[2016-09-09] MEDS: DOCUSATE SODIUM 50 MG/SENNA 8.6 MG TAB PO SCH ×2 (09:00→20:00)
[2016-09-09] MEDS: ARTIFICIAL TEARS OPTH OINT 3.5 APPLIC/3.5 GM TUBO EACH EYE SCH ×2 (09:00→20:02)
[2016-09-09] MEDS: metFORMIN HCL 500 MG TAB PO SCH ×2 (09:00→18:00)
[2016-09-09] MEDS: FUROSEMIDE 20 MG/2 ML VIAL IV PUSH SCH (09:07)
[2016-09-09] MEDS: SODIUM CHLORIDE 0.9% FLUSH 5 ML FLUSH IVF SCH ×2 (09:07→20:01)
[2016-09-09] MEDS ORDERED: METOPROLOL TARTRATE 5 MG/5 ML VIAL IV PUSH PRN (13:00)
--- NOTE | 2016-09-09 13:03 | RADRPT ---
EXAM DATE/TIME: 09/09/2016 12:44 [facility] COMPARISON: ABDOMEN KUB ONLY, August 29, 2016, 11:19. INDICATIONS : Confirm NG Tube Placement. MEDICAL HISTORY : Hypertension. Diabetes mellitus type 2. Hypercholesterolemia. SURGICAL HISTORY : Brain bolt placed and removed. ENCOUNTER: Initial ACUITY: 1 day PAIN SCORE: Non-responsive. LOCATION: Abdomen. FINDINGS: 2 portable views of the abdomen demonstrate feeding tube distal tip in the distal stomach in the antr opyloric region. There is a nonobstructive bowel gas pattern. No acute finding is identified. CONCLUSION: Feeding tube distal tip in the antropyloric region of the stomach. Attila Burkett MD on September 09, 2016 at 12:59 Board Certified Radiologist. This report was verified electronically.
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
[2016-09-09] MEDS: MAGNESIUM HYDROXIDE SUSP 30 ML CUP PO SCH (20:00)
[2016-09-09] MEDS: ATORVASTATIN 40 MG TAB PO SCH (20:01)
[2016-09-09] MEDS ORDERED: PHARMACY ORDERED LAB XX ONE (23:45)
[2016-09-10] VITALS (14 sets, daily range): BP systolic 121–145; BP diastolic 70–91; PULSE 72–98; RESP 18–28; TEMP 97.9–98.5; O2SAT 96–99
[2016-09-10] MEDS: VANCOMYCIN INJ 1,500 MG in SODIUM CHLORID 0.9% 500 ML INJ 500 ML IV SCH ×3 (00:12→23:19)
[2016-09-10] MEDS: PIPERACIL-TAZO 3.375 GM PREMIX 50 ML IV SCH ×4 (02:56→20:51)
[2016-09-10 03:58] LABS: HEMATOCRIT 30.7 % (39.0-51.0); MEAN CELL VOLUME 89.4 FL (80.0-100.0); MEAN CORPUSCULAR HEMOGLOBIN 29.9 PG (27.0-34.0); MEAN CORPUSCULAR HGB CONC 33.4 % (32.0-36.0); PLATELET COUNT 323 TH/MM3 (150-450); RED BLOOD COUNT 3.44 MIL/MM3 (4.50-5.90); RED CELL DISTRIBUTION WIDTH 14.1 % (11.6-17.2); REVIEW FLAG FINAL; WHITE BLOOD COUNT 13.1 TH/MM3 (4.0-11.0)
[2016-09-10 04:33] LABS: BICARBONATE 27.8 MEQ/L (21.0-32.0); MAGNESIUM 2.5 MG/DL (1.5-2.5); POTASSIUM 3.7 MEQ/L (3.5-5.1)
[2016-09-10] MEDS: INSULIN NovoLIN REGULAR SUPPLEMENTAL SCALE SQ SCH ×4 (06:21→20:52)
[2016-09-10] MEDS: AMANTADINE HCL SOLN 100 MG/10 ML UDC TUBE SCH ×2 (06:21→12:09)
[2016-09-10] MEDS: DEXT 5%-NACL 0.45% 1000 ML INJ 1,000 ML IV SCH (06:22)
[2016-09-10] MEDS: ARTIFICIAL TEARS OPTH OINT 3.5 APPLIC/3.5 GM TUBO EACH EYE SCH ×2 (09:00→20:52)
[2016-09-10] MEDS: BISACODYL 10 MG SUPP RECTAL ONE ×2 (09:00→15:43)
[2016-09-10] MEDS: SODIUM CHLORIDE 0.9% FLUSH 5 ML FLUSH IVF SCH ×2 (10:12→20:52)
[2016-09-10] MEDS: FAMOTIDINE 20 MG TAB PO SCH ×2 (10:12→20:52)
[2016-09-10] MEDS: metFORMIN HCL 500 MG TAB PO SCH ×2 (10:12→16:54)
[2016-09-10] MEDS: amLODIPine BESYLATE 5 MG TAB PO SCH (10:12)
[2016-09-10] MEDS: DOCUSATE SODIUM 50 MG/SENNA 8.6 MG TAB PO SCH ×2 (10:13→20:52)
[2016-09-10] MEDS: LISINOPRIL 10 MG TAB PO SCH (10:13)
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
[2016-09-10] MEDS: MAGNESIUM HYDROXIDE SUSP 30 ML CUP PO SCH (20:52)
[2016-09-10] MEDS: ATORVASTATIN 40 MG TAB PO SCH (20:52)
[2016-09-11] VITALS (13 sets, daily range): BP systolic 110–180; BP diastolic 66–86; PULSE 68–96; RESP 18–27; TEMP 97.9–98.5; O2SAT 97–99
[2016-09-11] MEDS: PIPERACIL-TAZO 3.375 GM PREMIX 50 ML IV SCH ×2 (02:25→08:29)
[2016-09-11] MEDS: DEXT 5%-NACL 0.45% 1000 ML INJ 1,000 ML IV SCH (02:26)
[2016-09-11 04:29] LABS: AUTOMATED NEUTROPHIL # 8.3 TH/MM3 (1.8-7.7); BASOPHIL # 0.1 TH/MM3 (0-0.2); BASOPHIL % 0.6 % (0.0-2.0); EOSINOPHIL # 0.6 TH/MM3 (0-0.4); EOSINOPHIL % 4.8 % (0.0-4.0); HEMO FLAGS DIFF FINAL; LYMPH % 16.6 % (9.0-44.0); MEAN CELL VOLUME 89.7 FL (80.0-100.0); MEAN CORPUSCULAR HEMOGLOBIN 30.1 PG (27.0-34.0); MEAN CORPUSCULAR HGB CONC 33.6 % (32.0-36.0); MONO % 7.7 % (0.0-8.0); NEUT % 70.3 % (16.0-70.0); PLATELET COUNT 324 TH/MM3 (150-450); RED BLOOD COUNT 3.35 MIL/MM3 (4.50-5.90); RED CELL DISTRIBUTION WIDTH 14.5 % (11.6-17.2); WHITE BLOOD COUNT 11.8 TH/MM3 (4.0-11.0)
[2016-09-11 05:01] LABS: ALKALINE PHOSPHATASE 262 U/L (45-117); ALT (GPT) 110 U/L (12-78); ANION GAP 8 MEQ/L (5-15); AST (GOT) 48 U/L (15-37); BICARBONATE 28.2 MEQ/L (21.0-32.0); BLOOD UREA NITROGEN 25 MG/DL (7-18); CHLORIDE 110 MEQ/L (98-107); GLOMERULAR FILTRATION RATE 73 ML/MIN (>89); MAGNESIUM 2.4 MG/DL (1.5-2.5); POTASSIUM 3.8 MEQ/L (3.5-5.1); SODIUM (NA) 146 MEQ/L (136-145); TOTAL BILIRUBIN ADULT 1.1 MG/DL (0.2-1.0)
[2016-09-11] MEDS: INSULIN NovoLIN REGULAR SUPPLEMENTAL SCALE SQ SCH ×4 (06:50→19:56)
[2016-09-11] MEDS: AMANTADINE HCL SOLN 100 MG/10 ML UDC TUBE SCH ×2 (06:50→11:25)
[2016-09-11] MEDS: FAMOTIDINE 20 MG TAB PO SCH ×2 (08:29→19:56)
[2016-09-11] MEDS: metFORMIN HCL 500 MG TAB PO SCH ×2 (08:29→17:19)
[2016-09-11] MEDS: SODIUM CHLORIDE 0.9% FLUSH 5 ML FLUSH IVF SCH ×2 (08:30→19:56)
[2016-09-11] MEDS: DOCUSATE SODIUM 50 MG/SENNA 8.6 MG TAB PO SCH ×2 (08:30→19:55)
[2016-09-11] MEDS: LISINOPRIL 10 MG TAB PO SCH (08:30)
[2016-09-11] MEDS: amLODIPine BESYLATE 5 MG TAB PO SCH (08:30)
[2016-09-11] MEDS: ARTIFICIAL TEARS OPTH OINT 3.5 APPLIC/3.5 GM TUBO EACH EYE SCH ×2 (08:30→19:56)
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
[2016-09-11] MEDS: VANCOMYCIN INJ 1,500 MG in SODIUM CHLORID 0.9% 500 ML INJ 500 ML IV SCH (12:00)
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
--- NOTE | 2016-09-11 14:51 | HHI.PR ---
Subjective Subjective Comments Patient up at bedside chair not in any apparent distress. Family at bedside. No pain behaviors noted. No shortness of breath noted. Allergies: Coded Allergies: No Known Allergies (Unverified , 08/28/16) Review of Systems All other ROS: Unable to obtain Exam I&O / VS 09/10/16 09/10/16 09/11/16 15:00 23:00 07:00 Intake Total 1316 ml 1003 ml 1331 ml Output Total 70 ml 700 ml 700 ml Balance 1246 ml 303 ml 631 ml IV Total 956 ml 651 ml 920 ml Tube Feeding 360 ml 232 ml 291 ml Other 120 ml 120 ml Output Urine Total 70 ml 700 ml 700 ml # Bowel Movements 1 2 Vital Signs Date Time Temp Pulse Resp B/P Pulse Ox O2 Delivery O2 Flow Rate FiO2 09/11/16 14:00 76 09/11/16 12:00 98.2 90 23 110/79 98 09/11/16 12:00 96 09/11/16 10:00 84 09/11/16 08:30 97 Nasal Cannula 2.00 09/11/16 08:00 82 09/11/16 08:00 98.3 90 22 180/86 99 09/11/16 06:00 94 09/11/16 04:00 97.9 74 20 150/66 97 09/11/16 04:00 74 09/11/16 02:00 84 09/11/16 00:00 86 09/11/16 00:00 98.4 86 27 129/74 98 09/10/16 22:00 88 09/10/16 21:03 96 Nasal Cannula 2.00 09/10/16 20:00 98.5 92 27 126/81 98 09/10/16 20:00 92 09/10/16 18:00 98 09/10/16 16:00 91 09/10/16 16:00 98.2 84 28 134/91 98 General: No acute distress Musculoskeletal: ROM (Grossly within normal limits), Other (SCDs in place) Orientation: unable to asses Self, unable to asses Place, unable to asses Time , unable to asses Situation Neurologic: Pupils (PERRLA), EOM (Tracks right and left), Speech (Not attempting to verbalize) Clonus: Negative Objective Micro and Labs Laboratory Tests Test 3/6/17 04:02 White Blood Count 11.8 Red Blood Count 3.35 Hemoglobin 10.1 Hematocrit 30.0 Mean Corpuscular Volume 89.7 Mean Corpuscular Hemoglobin 30.1 Mean Corpuscular Hemoglobin 33.6 Concent Red Cell Distribution Width 14.5 Platelet Count 324 Mean Platelet Volume 9.2 Neutrophils (%) (Auto) 70.3 Lymphocytes (%) (Auto) 16.6 Monocytes (%) (Auto) 7.7 Eosinophils (%) (Auto) 4.8 Basophils (%) (Auto) 0.6 Neutrophils # (Auto) 8.3 Lymphocytes # (Auto) 2.0 Monocytes # (Auto) 0.9 Eosinophils # (Auto) 0.6 Basophils # (Auto) 0.1 CBC Comment DIFF FINAL Differential Comment Sodium Level 146 Potassium Level 3.8 Chloride Level 110 Carbon Dioxide Level 28.2 Anion Gap 8 Blood Urea Nitrogen 25 Creatinine 1.02 Estimat Glomerular Filtration 73 Rate Random Glucose 177 Calcium Level 8.1 Phosphorus Level 2.6 Magnesium Level 2.4 Total Bilirubin 1.1 Aspartate Amino Transf 48 (AST/SGOT) Alanine Aminotransferase 110 (ALT/SGPT) Alkaline Phosphatase 262 Total Protein 6.1 Albumin 2.4 Assessment and Plan Diagnosis: (1) Traumatic brain injury Qualified Code: S06.9X9D - Traumatic brain injury, with loss of consciousness of unspecified duration, subsequent encounter Assessment 1. Severe traumatic brain injury currently intubated and sedated Rancho level 3 -4 2. Associated injuries including bilateral multiple rib fractures, bilateral pulmonary contusions, left clavicle fracture and sternal fracture 3. Hypertension 4. Diabetes mellitus 5. Hypercholesterolemia 6. Previous NH 7. Chronic back problems Plan 1. PT providing range of motion patient is up to stretcher chair 2. OT for ADLs and range of motion and patient's currently dependent 3. Speech therapy is evaluating swallow and currently nothing by mouth 4. Cognitive stimulation program per speech therapy requested 5. Tolerating amantadine 100 mg every 7am and 12 noon and will follow to further increase 6. Case management working on discharge planning likely to inpatient rehabilitation 7. Will continue to follow Bernadine Linda MD Sep 11, 2016 14:51
[2016-09-11] MEDS: oxyCODONE/ACETAMINOPHEN 10 MG/325 MG TAB PO/NG PRN (18:37)
[2016-09-11] MEDS: ATORVASTATIN 40 MG TAB PO SCH (19:56)
[2016-09-11] MEDS: MAGNESIUM HYDROXIDE SUSP 30 ML CUP PO SCH (19:57)
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
[2016-09-12] VITALS (14 sets, daily range): BP systolic 128–154; BP diastolic 65–87; PULSE 69–90; RESP 15–22; TEMP 97.6–98.3; O2SAT 97–100
[2016-09-12 04:47] LABS: AUTOMATED NEUTROPHIL # 7.4 TH/MM3 (1.8-7.7); BASOPHIL # 0.1 TH/MM3 (0-0.2); BASOPHIL % 0.6 % (0.0-2.0); EOSINOPHIL # 0.5 TH/MM3 (0-0.4); EOSINOPHIL % 4.5 % (0.0-4.0); HEMATOCRIT 31.4 % (39.0-51.0); LYMPHOCYTE # 2.1 TH/MM3 (1.0-4.8); MEAN CELL VOLUME 89.4 FL (80.0-100.0); MEAN CORPUSCULAR HEMOGLOBIN 29.8 PG (27.0-34.0); MEAN CORPUSCULAR HGB CONC 33.4 % (32.0-36.0); MONO % 7.6 % (0.0-8.0); NEUT % 68.3 % (16.0-70.0); PLATELET COUNT 321 TH/MM3 (150-450); RED BLOOD COUNT 3.51 MIL/MM3 (4.50-5.90); RED CELL DISTRIBUTION WIDTH 14.8 % (11.6-17.2); WHITE BLOOD COUNT 10.8 TH/MM3 (4.0-11.0)
[2016-09-12 04:52] LABS: HEMO FLAGS AUTO DIFF
[2016-09-12 05:06] LABS: BICARBONATE 29.7 MEQ/L (21.0-32.0)
[2016-09-12] MEDS: INSULIN NovoLIN REGULAR SUPPLEMENTAL SCALE SQ SCH ×3 (05:47→20:08)
[2016-09-12] MEDS: AMANTADINE HCL SOLN 100 MG/10 ML UDC TUBE SCH ×2 (05:47→12:00)
--- NOTE | 2016-09-12 05:49 | RADRPT ---
EXAM DATE/TIME: 09/12/2016 05:36 [facility] COMPARISON: CHEST SINGLE AP, September 09, 2016, 5:10. INDICATIONS : Short of breath. MEDICAL HISTORY : Hypertension. Diabetes mellitus type II. SURGICAL HISTORY : None. ENCOUNTER: Subsequent ACUITY: 2 weeks PAIN SCORE: Non-responsive. LOCATION: Bilateral chest FINDINGS: A single view of the chest demonstrates developing left basilar consolidation/effusion. Right lung re marco clear. Heart size is borderline prominent or compensated. Interval placement of a feeding tube which crosses the GE junction and extends off the inferior aspect of the film. CONCLUSION: 1. Developing atelectatic changes/effusion in the left base. Right lung remains clear. 2. Compensated cardiomegaly. 3. Interval placement of a feeding tube which enters the stomach and extends off the inferior aspect of the film. Ziggy Villasenor MD on September 12, 2016 at 5:45 Board Certified Radiologist. This report was verified electronically.
[2016-09-12 06:48] LABS: BANDS 10 % (0-6); EOSINOPHILS 1 % (0-4); METAMYELOCYTES 1 % (0-1); NEUTROPHIL # MANUAL DIFF 9.3 TH/MM3 (1.8-7.7); POLYS (SEG NEUTROPHILS) 75 % (16-70); WBC DIFF SAMPLE 100
[2016-09-12 06:49] LABS: KERATOCYTES OCC (NORMAL); PLATELET ESTIMATE SMEAR NORMAL (NORMAL); PLATELET MORPHOLOGY ENLARGED (NORMAL)
[2016-09-12 06:50] LABS: SCAN/DIFF FINAL DIFF MANUAL
[2016-09-12] MEDS: ARTIFICIAL TEARS OPTH OINT 3.5 APPLIC/3.5 GM TUBO EACH EYE SCH ×3 (09:00→20:30)
[2016-09-12] MEDS: DOCUSATE SODIUM 50 MG/SENNA 8.6 MG TAB PO SCH ×2 (09:00→20:03)
[2016-09-12] MEDS: amLODIPine BESYLATE 5 MG TAB PO SCH (10:00)
[2016-09-12] MEDS: FAMOTIDINE 20 MG TAB PO SCH ×2 (10:00→20:03)
[2016-09-12] MEDS: LISINOPRIL 10 MG TAB PO SCH (10:00)
[2016-09-12] MEDS: metFORMIN HCL 500 MG TAB PO SCH ×2 (10:01→20:03)
[2016-09-12] MEDS: SODIUM CHLORIDE 0.9% FLUSH 5 ML FLUSH IVF SCH ×2 (10:01→20:03)
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
[2016-09-12] MEDS: oxyCODONE/ACETAMINOPHEN 10 MG/325 MG TAB PO/NG PRN ×2 (13:23→23:12)
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
[2016-09-12] MEDS: MAGNESIUM HYDROXIDE SUSP 30 ML CUP PO SCH (20:03)
[2016-09-12] MEDS: traZODone HCL 50 MG TAB PO SCH (20:03)
[2016-09-12] MEDS: ATORVASTATIN 40 MG TAB PO SCH (20:03)
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
[2016-09-13] VITALS (11 sets, daily range): BP systolic 114–154; BP diastolic 64–93; PULSE 75–100; RESP 18–25; TEMP 96.3–99.2; O2SAT 95–99
[2016-09-13] MEDS: oxyCODONE/ACETAMINOPHEN 10 MG/325 MG TAB PO/NG PRN ×2 (04:07→20:35)
[2016-09-13] MEDS: INSULIN NovoLIN REGULAR SUPPLEMENTAL SCALE SQ SCH ×4 (05:04→21:00)
[2016-09-13] MEDS: AMANTADINE HCL SOLN 100 MG/10 ML UDC TUBE SCH ×2 (05:04→11:17)
[2016-09-13 05:30] LABS: AUTOMATED NEUTROPHIL # 7.9 TH/MM3 (1.8-7.7); BASOPHIL # 0.1 TH/MM3 (0-0.2); BASOPHIL % 0.6 % (0.0-2.0); EOSINOPHIL # 0.4 TH/MM3 (0-0.4); EOSINOPHIL % 3.8 % (0.0-4.0); HEMATOCRIT 30.7 % (39.0-51.0); LYMPH % 19.4 % (9.0-44.0); LYMPHOCYTE # 2.3 TH/MM3 (1.0-4.8); MEAN CELL VOLUME 89.1 FL (80.0-100.0); MEAN CORPUSCULAR HGB CONC 33.6 % (32.0-36.0); MONO % 7.8 % (0.0-8.0); NEUT % 68.4 % (16.0-70.0); PLATELET COUNT 335 TH/MM3 (150-450); RED BLOOD COUNT 3.44 MIL/MM3 (4.50-5.90); RED CELL DISTRIBUTION WIDTH 14.5 % (11.6-17.2); WHITE BLOOD COUNT 11.6 TH/MM3 (4.0-11.0)
[2016-09-13 05:49] LABS: BICARBONATE 28.1 MEQ/L (21.0-32.0); POTASSIUM 4.1 MEQ/L (3.5-5.1)
[2016-09-13 05:50] LABS: HEMO FLAGS AUTO DIFF
[2016-09-13 06:54] LABS: EOSINOPHILS 4 % (0-4); MYELOCYTES 1 % (0-0); NEUTROPHIL # MANUAL DIFF 8.9 TH/MM3 (1.8-7.7); POLYS (SEG NEUTROPHILS) 76 % (16-70); WBC DIFF SAMPLE 100
[2016-09-13 06:55] LABS: PLATELET ESTIMATE SMEAR NORMAL (NORMAL); PLATELET MORPHOLOGY NORMAL (NORMAL); SCAN/DIFF FINAL DIFF MANUAL
[2016-09-13] MEDS: LISINOPRIL 10 MG TAB PO SCH (08:31)
[2016-09-13] MEDS: amLODIPine BESYLATE 5 MG TAB PO SCH (08:31)
[2016-09-13] MEDS: ARTIFICIAL TEARS OPTH OINT 3.5 APPLIC/3.5 GM TUBO EACH EYE SCH (08:31)
[2016-09-13] MEDS: SODIUM CHLORIDE 0.9% FLUSH 5 ML FLUSH IVF SCH ×2 (08:31→20:30)
[2016-09-13] MEDS: DOCUSATE SODIUM 50 MG/SENNA 8.6 MG TAB PO SCH ×2 (08:31→20:31)
[2016-09-13] MEDS: FAMOTIDINE 20 MG TAB PO SCH ×2 (08:31→20:30)
[2016-09-13] MEDS: metFORMIN HCL 500 MG TAB PO SCH ×2 (08:31→18:28)
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
[2016-09-13] MEDS ORDERED: SENN1TAB PO (10:06)
[2016-09-13] MEDS ORDERED: OXYC1TAB36 PO/NG (10:06)
[2016-09-13] MEDS ORDERED: FAMO20TA2 PO (10:06)
[2016-09-13] MEDS ORDERED: MILKSUS PO (10:06)
[2016-09-13] MEDS ORDERED: LACT10SO PO (10:06)
[2016-09-13] MEDS ORDERED: TRAZ50TA12 PO (10:06)
[2016-09-13] MEDS ORDERED: AMAN100UDC PO (10:06)
[2016-09-13] MEDS ORDERED: ACET325T PO (10:06)
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
--- NOTE | 2016-09-13 16:08 | RADRPT ---
EXAM DATE/TIME: 09/13/2016 15:15 [place] COMPARISON: MRI BRAIN W & W/O CONTRAST, September 04, 2016, 10:01. CT BRAIN W/O CONTRAST, August 29, 2016, 4:5 3. INDICATIONS : Evaluate for intracrainial hemorrhage. RADIATION DOSE: 49.99 CTDIvol (mGy) MEDICAL HISTORY : Hypertension. Myocardial infarction. diabetes SURGICAL HISTORY : None. ENCOUNTER: Subsequent ACUITY: 1 day PAIN SCALE: Non-responsive LOCATION: Bilateral head TECHNIQUE: Multiple contiguous axial images were obtained of the head. Using automated exposure control and adj ustment of the mA and/or kV according to patient size, radiation dose was kept as low as reasonably a chievable to obtain optimal diagnostic quality images. FINDINGS: Decreasing size and conspicuity of patchy parenchymal contusions of both cerebral hemispheres. A few faint, residual contusions can be seen in the subcortical regions of both frontal and parietal lobes near the vertices. A small amount of residual perifalcine blood is again seen posteriorly, also much decreased. There are bifrontal cystic hygromas that measure up to 9 mm on the right and up to 8 mm on the l eft. These are similar to the prior MRI but slightly larger than on the prior CT. I don't see any acu te blood products within these. No new blood. No mass, mass effect or midline shift. No evidence of an acute ischemic event. CONCLUSION: 1. Decreasing subdural and bilateral parenchymal hemorrhages as above. 2. Bifrontal low attenuation cystic hygromas, similar in size to the prior MRI. 3. No new/acute abnormality demonstrated. Attila Junior MD on September 13, 2016 at 16:01 Board Certified Radiologist. This report was verified electronically.
--- NOTE | 2016-09-13 16:44 | HHI.PR ---
Subjective Subjective Comments Patient with eyes open. Family at bedside. Patient up in stretcher chair. Does not appear to be in any discomfort and not short of breath. TLSO is in place. Allergies: Coded Allergies: No Known Allergies (Unverified , 08/28/16) Review of Systems All other ROS: Unable to obtain Exam I&O / VS 09/12/16 09/12/16 09/13/16 15:00 23:00 07:00 Intake Total 863 ml 640 ml 591 ml Balance 863 ml 640 ml 591 ml IV Total 81 ml 85 ml 68 ml Tube Feeding 482 ml 435 ml 403 ml Tube Irrigant 300 ml 120 ml 120 ml # Voids 3 3 4 # Bowel Movements 2 1 1 Vital Signs Date Time Temp Pulse Resp B/P Pulse Ox O2 Delivery O2 Flow Rate FiO2 09/13/16 16:00 90 09/13/16 16:00 98.3 90 21 126/82 97 09/13/16 14:00 94 09/13/16 12:00 98.0 100 25 154/88 96 09/13/16 12:00 92 09/13/16 10:00 83 09/13/16 08:00 75 09/13/16 08:00 97.8 76 18 120/64 95 09/13/16 06:00 88 09/13/16 04:00 88 09/13/16 04:00 97.8 88 24 114/65 98 09/13/16 02:00 88 09/13/16 00:00 88 09/13/16 00:00 98.3 88 25 136/80 98 09/12/16 22:00 89 09/12/16 20:00 97.6 80 20 134/80 99 09/12/16 20:00 80 09/12/16 19:47 97 Nasal Cannula 4.00 09/12/16 18:00 90 General: No acute distress, Other (Up in stretcher chair with TLSO in place) Musculoskeletal: ROM (Grossly within normal limits), Other (SCDs in place) Psychiatric: Cooperative Orientation: oriented to Self Neurologic: Pupils (PERRLA), EOM (Tracks right and left), Speech (Beginning to verbalize and responds yes appropriately), Other (Follows approximately 50-75% a simple commands to move the extremities) Clonus: Negative Objective Micro and Labs Laboratory Tests Test 09/13/16 03:55 White Blood Count 11.6 Red Blood Count 3.44 Hemoglobin 10.3 Hematocrit 30.7 Mean Corpuscular Volume 89.1 Mean Corpuscular Hemoglobin 30.0 Mean Corpuscular Hemoglobin 33.6 Concent Red Cell Distribution Width 14.5 Platelet Count 335 Mean Platelet Volume 9.8 Neutrophils (%) (Auto) 68.4 Lymphocytes (%) (Auto) 19.4 Monocytes (%) (Auto) 7.8 Eosinophils (%) (Auto) 3.8 Basophils (%) (Auto) 0.6 Neutrophils # (Auto) 7.9 Lymphocytes # (Auto) 2.3 Monocytes # (Auto) 0.9 Eosinophils # (Auto) 0.4 Basophils # (Auto) 0.1 CBC Comment AUTO DIFF Differential Total Cells 100 Counted Neutrophils % (Manual) 76 Lymphocytes % 15 Monocytes % 4 Eosinophils % 4 Neutrophils # (Manual) 8.9 Myelocytes 1 Differential Comment FINAL DIFF MANUAL Platelet Estimate NORMAL Platelet Morphology Comment NORMAL Basophilic Stippling FAINT Sodium Level 143 Potassium Level 4.1 Chloride Level 105 Carbon Dioxide Level 28.1 Anion Gap 10 Blood Urea Nitrogen 19 Creatinine 0.80 Estimat Glomerular Filtration 96 Rate Random Glucose 144 Calcium Level 8.7 Assessment and Plan Diagnosis: (1) Traumatic brain injury Qualified Code: S06.9X9D - Traumatic brain injury, with loss of consciousness of unspecified duration, subsequent encounter Assessment 1. Severe traumatic brain injury currently [place] level 5 2. Associated injuries including: T8 vertebral body fracture, bilateral multiple rib fractures, bilateral pulmonary contusions, left clavicle fracture and sternal fracture 3. Hypertension 4. Diabetes mellitus 5. Hypercholesterolemia 6. Previous SD 7. Chronic back problems Plan 1. PT providing range of motion patient is up to stretcher chair max assist of 2 2. OT for ADLs and mod assist for feeding and mod to max assist for grooming 3. Speech therapy is evaluating swallow and diet has been upgraded to. With pudding thick liquids 4. Continue cognitive stimulation per speech therapy 5. Continue amantadine 100 mg every 7am and 12 noon 6. Case management working on discharge planning likely to inpatient rehabilitation 7. Will continue to follow Bernadine Linda MD Sep 13, 2016 16:44
--- NOTE | 2016-09-13 17:46 | PD.ORT.PN ---
Subjective Subjective Remarks Patient awake and alert. Extubated on 09/08/16. Able to follow simple commands. Family at bedside. Denies pain to left clavicle. Objective Vitals Vital Signs Date Time Temp Pulse Resp B/P Pulse Ox O2 Delivery O2 Flow Rate FiO2 09/13/16 16:00 90 09/13/16 16:00 98.3 90 21 126/82 97 09/13/16 14:00 94 09/13/16 12:00 98.0 100 25 154/88 96 09/13/16 12:00 92 09/13/16 10:00 83 09/13/16 08:00 75 09/13/16 08:00 97.8 76 18 120/64 95 09/13/16 07:00 Nasal Cannula 4.00 09/13/16 06:00 88 09/13/16 04:00 88 09/13/16 04:00 97.8 88 24 114/65 98 09/13/16 02:00 88 09/13/16 00:00 88 09/13/16 00:00 98.3 88 25 136/80 98 09/12/16 22:00 89 09/12/16 20:00 97.6 80 20 134/80 99 09/12/16 20:00 80 09/12/16 19:47 97 Nasal Cannula 4.00 09/12/16 18:00 90 I/O 09/12/16 09/12/16 09/12/16 09/13/16 09/13/16 09/13/16 07:00 15:00 23:00 07:00 15:00 23:00 Intake Total 701 ml 863 ml 640 ml 591 ml 300 ml Balance 701 ml 863 ml 640 ml 591 ml 300 ml Intake Oral 300 ml IV Total 87 ml 81 ml 85 ml 68 ml Tube Feeding 514 ml 482 ml 435 ml 403 ml Tube Irrigant 100 ml 300 ml 120 ml 120 ml # Voids 5 3 3 4 3 # Bowel Movements 3 2 1 1 0 Result Diagram: 09/13/16 0355 09/13/16 0355 Imaging Last 24 hours Impressions Chest X-Ray 08/28/16 0000 Signed Impressions: Service Date/Time: Sunday, August 28, 2016 00:39 - CONCLUSION: 1. Increased density at the bases being worse on the left representing contusion and/or atelectasis. 2. Reexpansion of the right upper lung. 3. Left clavicle fracture. Attila Benson MD Thoracic Spine CT 08/27/162220 Signed Impressions: Service Date/Time: Saturday, August 27, 2016 22:54 - CONCLUSION: 1. Subtle fracturing at the superior anterior aspect of the T6 vertebral body and the inferior T8 vertebral body without significant loss of height. The posterior vertebral body margins appear intact at these levels. 2. More prominent compression deformity at the superior aspect of L1 more fully described in CT of the lumbar spine report. Attila Benson MD Pelvis X-Ray 08/27/162220 Signed Impressions: Service Date/Time: Saturday, August 27, 2016 22:15 - CONCLUSION: No acute disease. Attila Benson MD Maxillofacial CT 08/27/162220 Signed Impressions: Service Date/Time: Saturday, August 27, 2016 22:44 - CONCLUSION: 1. Definite fracture at the left lateral orbit. 2. Lucency at the left inferior lateral orbit representing either a stricture or nondisplaced fracture. 3. Left periorbital soft tissue swelling. 4. Focal lucency at the base the left nasal bone which may a represent nondisplaced fracture. 5. Subarachnoid hemorrhage. Attila Benson MD Lumbar Spine CT 08/27/162220 Signed Impressions: Service Date/Time: Saturday, August 27, 2016 22:54 - CONCLUSION: 1. Fracturing of the superior L1 vertebral body with minimal retropulsion of the posterior superior aspect of the L1 vertebral body causing a mild impression on the thecal sac. There is also some increased density seen posterior to the mid and inferior aspect of the L1 vertebral body which may represent some mild anterior epidural hemorrhage. 2. Suspected fracturing at the left pars interarticularis region. 3. Mild L4-L5 disc bulge. Attila Benson MD Head CT 08/27/162220 Signed Impressions: Service Date/Time: Saturday, August 27, 2016 22:44 - CONCLUSION: 1. Small subdural hematoma over the left convexity measuring up to 6 mm in diameter with additional scattered subdural hemorrhage present as above. There is also subarachnoid hemorrhage bilaterally especially in the left sylvian fissure and scattered parenchymal subcentimeter contusions in the brain. There is no significant mass effect or midline shift on the current exam. Fluid in right frontal sinus. Left periorbital soft tissue swelling. Gurmeet Fox MD Chest X-Ray 08/27/162220 Signed Impressions: Service Date/Time: Saturday, August 27, 2016 22:15 - CONCLUSION: 1. Suspected bilateral rib fractures and a left clavicle fracture. 2. Suspected collapse of the right upper lobe versus a prominent area of contusion. There is also a lesser degree of increased parenchymal density like representing contusion at the left base. Attila Benson MD Chest CT 08/27/162220 Signed Impressions: Service Date/Time: Saturday, August 27, 2016 22:54 - CONCLUSION: 1. Upper sternal body fracture. 2. Acute right fourth and left sixth ribs fractures. 3. Left clavicle fracture 4. Suspected fracturing of the anterior inferior aspect of the T8 vertebral body without collapse. 5. Bilateral areas of suspected lung contusion. Attila Benson MD Cervical Spine CT 08/27/162220 Signed Impressions: Service Date/Time: Saturday, August 27, 2016 22:44 - CONCLUSION: 1. Moderate degenerative disc disease is present in the cervical spine. No acute fracture or spondylolisthesis. No prevertebral soft tissue swelling. Patient is intubated and NG tube present. There is opacification at the right lung apex. Gurmeet Fox MD Abdomen/Pelvis CT 08/27/162220 Signed Impressions: Service Date/Time: Saturday, August 27, 2016 22:54 - CONCLUSION: 1. No acute abnormality seen within the abdomen and pelvis. 2. Possible T8 vertebral body fracture seen at the anterior inferior aspect. 3. Nonspecific focal there is a sclerosis in the left pelvis. They may represent bone islands. Other causes for sclerotic lesions cannot be excluded. 4. 3.3 cm abdominal aortic aneurysm. Attila Benson MD Objective Remarks Left clavicle Palpable bump and swelling on left midshaft clavicle With direct palpation and ROM of shoulder denies pain Sternoclaviclular and acromioclavicular joints aligned Good movement of left hand and left elbow. Denies numbness/tingling sensation 2+ radial pulses Skin intact Assessment & Plan Problem List: (1) Major neurocognitive disorder as late effect of traumatic brain injury with behavioral disturbance (2) Closed left clavicular fracture Assessment and Plan Patient's condition was discussed and his options of treatment was discussed with family. At this time family would like to continue with conservative management in regards to his closed left clavicular fracture. Currently family is concern with his other medical problems which have priority. Radiographically, it appears that the fracture requires surgical intervention, however, surgical and non-operative fractures are both options. We do not know how the patient will do long-term in regards to function and pain. We agreed to continue with conservative management which is appropriate at this time. Monitor left clavicle fracture Occupation therapy - left shoulder Patient's case discussed with Dr. Aleman. Jay Turner Sep 13, 2016 17:45
[2016-09-13] MEDS: ATORVASTATIN 40 MG TAB PO SCH (20:30)
[2016-09-13] MEDS: traZODone HCL 50 MG TAB PO SCH (20:30)
[2016-09-13] MEDS: MAGNESIUM HYDROXIDE SUSP 30 ML CUP PO SCH (20:31)
[2016-09-14] VITALS: BP 143/88; PULSE 83; RESP 18; TEMP 96.9; O2SAT 98
[2016-09-14 04:00] VITALS: BP 149/90; PULSE 87; RESP 20; TEMP 97.1; O2SAT 95
[2016-09-14] MEDS: INSULIN NovoLIN REGULAR SUPPLEMENTAL SCALE SQ SCH ×3 (06:06→16:43)
[2016-09-14 08:23] VITALS: BP 142/88; PULSE 87; RESP 18; TEMP 96.9; O2SAT 94
[2016-09-14 08:27] LABS: AUTOMATED NEUTROPHIL # 8.5 TH/MM3 (1.8-7.7); BASOPHIL # 0.1 TH/MM3 (0-0.2); BASOPHIL % 0.9 % (0.0-2.0); EOSINOPHIL # 0.4 TH/MM3 (0-0.4); HEMATOCRIT 32.7 % (39.0-51.0); HEMO FLAGS DIFF FINAL; LYMPH % 17.2 % (9.0-44.0); MEAN CELL VOLUME 87.7 FL (80.0-100.0); MEAN CORPUSCULAR HEMOGLOBIN 29.8 PG (27.0-34.0); MEAN CORPUSCULAR HGB CONC 33.9 % (32.0-36.0); MONO % 7.3 % (0.0-8.0); NEUT % 71.6 % (16.0-70.0); PLATELET COUNT 360 TH/MM3 (150-450); RED BLOOD COUNT 3.73 MIL/MM3 (4.50-5.90); RED CELL DISTRIBUTION WIDTH 14.8 % (11.6-17.2); WHITE BLOOD COUNT 11.8 TH/MM3 (4.0-11.0)
[2016-09-14 08:57] LABS: BICARBONATE 28.5 MEQ/L (21.0-32.0); POTASSIUM 3.8 MEQ/L (3.5-5.1)
[2016-09-14] MEDS: ARTIFICIAL TEARS OPTH OINT 3.5 APPLIC/3.5 GM TUBO EACH EYE SCH (09:00)
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
[2016-09-14 09:22] VITALS: O2SAT 95
[2016-09-14] MEDS: metFORMIN HCL 500 MG TAB PO SCH ×2 (09:26→17:15)
[2016-09-14] MEDS: amLODIPine BESYLATE 5 MG TAB PO SCH (09:26)
[2016-09-14] MEDS: DOCUSATE SODIUM 50 MG/SENNA 8.6 MG TAB PO SCH (09:26)
[2016-09-14] MEDS: FAMOTIDINE 20 MG TAB PO SCH (09:26)
[2016-09-14] MEDS: SODIUM CHLORIDE 0.9% FLUSH 5 ML FLUSH IVF SCH (09:26)
[2016-09-14] MEDS: LISINOPRIL 10 MG TAB PO SCH (09:26)
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
[2016-09-14] MEDS: AMANTADINE HCL SOLN 100 MG/10 ML UDC TUBE SCH (12:12)
--- NOTE | 2016-09-14 12:33 | HHI.PR ---
Subjective Subjective Notes PTD: 18 Patient is found to sleep upon rounds. at bedside awaiting transfer to [facility]. Objective Vitals/I&O Vital Signs Date Time Temp Pulse Resp B/P Pulse Ox O2 Delivery O2 Flow Rate FiO2 09/14/16 09:22 95 Nasal Cannula 3.00 09/14/16 08:23 96.9 87 18 142/88 Labs Laboratory Tests Test 09/14/16 07:05 White Blood Count 11.8 Red Blood Count 3.73 Hemoglobin 11.1 Hematocrit 32.7 Mean Corpuscular Volume 87.7 Mean Corpuscular Hemoglobin 29.8 Mean Corpuscular Hemoglobin 33.9 Concent Red Cell Distribution Width 14.8 Platelet Count 360 Mean Platelet Volume 9.9 Neutrophils (%) (Auto) 71.6 Lymphocytes (%) (Auto) 17.2 Monocytes (%) (Auto) 7.3 Eosinophils (%) (Auto) 3.0 Basophils (%) (Auto) 0.9 Neutrophils # (Auto) 8.5 Lymphocytes # (Auto) 2.0 Monocytes # (Auto) 0.9 Eosinophils # (Auto) 0.4 Basophils # (Auto) 0.1 CBC Comment DIFF FINAL Differential Comment Sodium Level 142 Potassium Level 3.8 Chloride Level 104 Carbon Dioxide Level 28.5 Anion Gap 10 Blood Urea Nitrogen 15 Creatinine 0.78 Estimat Glomerular Filtration 99 Rate Random Glucose 143 Calcium Level 9.0 Radiology Last Impressions Head CT 09/13/16 0000 Signed Impressions: Service Date/Time: Tuesday, September 13, 2016 15:15 - CONCLUSION: 1. Decreasing subdural and bilateral parenchymal hemorrhages as above. 2. Bifrontal low attenuation cystic hygromas, similar in size to the prior MRI. 3. No new/acute abnormality demonstrated. Attila Junior MD Chest X-Ray 09/12/16 0600 Signed Impressions: Service Date/Time: Monday, September 12, 2016 05:36 - CONCLUSION: 1. Developing atelectatic changes/effusion in the left base. Right lung remains clear. 2. Compensated cardiomegaly. 3. Interval placement of a feeding tube which enters the stomach and extends off the inferior aspect of the film. Ziggy Villasenor MD Abdomen X-Ray 09/09/16 0000 Signed Impressions: Service Date/Time: Friday, September 09, 2016 12:44 - CONCLUSION: Feeding tube distal tip in the antropyloric region of the stomach. Attila Burkett MD Clavicle X-Ray 09/07/16 0000 Signed Impressions: Service Date/Time: September 16:03 - CONCLUSION: Two-view left shoulder demonstrates there is a transverse fracture to the midshaft left clavicle. It is not significantly displaced. Glenohumeral joint is preserved. Ribs are intact. Anatoly Patel MD Brain MRI 09/04/16 Signed Impressions: Service Date/Time: Sunday, September 04, 2016 10:01 - CONCLUSION: Multiple parenchymal contusions as described above without mass effect. Bilateral subdural hygromas with some acute blood particularly on the left without significant mass effect. Edgardo Peoples MD FACR Thoracic Spine CT 08/27/162220 Signed Impressions: Service Date/Time: Saturday, August 27, 2016 22:54 - CONCLUSION: 1. Subtle fracturing at the superior anterior aspect of the T6 vertebral body and the inferior T8 vertebral body without significant loss of height. The posterior vertebral body margins appear intact at these levels. 2. More prominent compression deformity at the superior aspect of L1 more fully described in CT of the lumbar spine report. Attila Benson MD Pelvis X-Ray 08/27/162220 Signed Impressions: Service Date/Time: Saturday, August 27, 2016 22:15 - CONCLUSION: No acute disease. Attila Benson MD Maxillofacial CT 08/27/162220 Signed Impressions: Service Date/Time: Saturday, August 27, 2016 22:44 - CONCLUSION: 1. Definite fracture at the left lateral orbit. 2. Lucency at the left inferior lateral orbit representing either a stricture or nondisplaced fracture. 3. Left periorbital soft tissue swelling. 4. Focal lucency at the base the left nasal bone which may a represent nondisplaced fracture. 5. Subarachnoid hemorrhage. Attila Benson MD Lumbar Spine CT 08/27/162220 Signed Impressions: Service Date/Time: Saturday, August 27, 2016 22:54 - CONCLUSION: 1. Fracturing of the superior L1 vertebral body with minimal retropulsion of the posterior superior aspect of the L1 vertebral body causing a mild impression on the thecal sac. There is also some increased density seen posterior to the mid and inferior aspect of the L1 vertebral body which may represent some mild anterior epidural hemorrhage. 2. Suspected fracturing at the left pars interarticularis region. 3. Mild L4-L5 disc bulge. Attila Benson MD Chest CT 08/27/162220 Signed Impressions: Service Date/Time: Saturday, August 27, 2016 22:54 - CONCLUSION: 1. Upper sternal body fracture. 2. Acute right fourth and left sixth ribs fractures. 3. Left clavicle fracture 4. Suspected fracturing of the anterior inferior aspect of the T8 vertebral body without collapse. 5. Bilateral areas of suspected lung contusion. Attila Benson MD Cervical Spine CT 08/27/162220 Signed Impressions: Service Date/Time: Saturday, August 27, 2016 22:44 - CONCLUSION: 1. Moderate degenerative disc disease is present in the cervical spine. No acute fracture or spondylolisthesis. No prevertebral soft tissue swelling. Patient is intubated and NG tube present. There is opacification at the right lung apex. Gurmeet Fox MD Abdomen/Pelvis CT 08/27/162220 Signed Impressions: Service Date/Time: Saturday, August 27, 2016 22:54 - CONCLUSION: 1. No acute abnormality seen within the abdomen and pelvis. 2. Possible T8 vertebral body fracture seen at the anterior inferior aspect. 3. Nonspecific focal there is a sclerosis in the left pelvis. They may represent bone islands. Other causes for sclerotic lesions cannot be excluded. 4. 3.3 cm abdominal aortic aneurysm. Attila Benson MD Narrative Exam GENERAL: This is a 70-year-old male asleep. SKIN: Warm and dry. HEAD: Atraumatic. Normocephalic. EYES: PERRLA ENT: No nasal bleeding or discharge. Mucous membranes pink and moist. NECK: Trachea midline. No JVD. CARDIOVASCULAR: Regular rate and rhythm. CM shows sinus rhythm. RESPIRATORY: No accessory muscle use. Lungs are clear to auscultation. Breath sounds equal bilaterally. No distress or dyspnea. GASTROINTESTINAL: BS + x 4 quads. Abdomen soft, non-tender, nondistended. MUSCULOSKELETAL: Extremities without cyanosis, or edema. + peripheral pulses x 4 extremities. Warm with good capillary refill and sensation. MAEW. NEUROLOGICAL: Asleep. A/P Problem List: (1) Traumatic brain injury (2) Sternal fracture (3) Left orbit fracture (4) Multiple fractures of ribs, bilateral, initial encounter for closed fracture (5) Acute respiratory failure with hypoxia (6) Closed left clavicular fracture (7) Closed T8 spinal fracture (8) T6 vertebral fracture (9) Closed left clavicular fracture (10) Bilateral pulmonary contusion Assessment and Plan [place]: This is a 70-year-old male who was [place] His GCS was 3 on the scene. He was intubated and has since then been successfully extubated. INJURIES: SDH (6mm) SAH LEFT orbital fx LEFT clavicle fx Sternal fx BILAT serial rib fx BILAT lung contusions Aspiration T6, T8 fx Incidental 3.3cm AAA Procedures: 08/28: [place] 09/01: [place] DC'd 09/08: EXTUBATED Consults: Orthopedics. Neurology. Neurosurgery. OMFS. CCM. Speech therapy. Case management. Diet: Pured diet with honey thick liquids. Tolerating po diet. Encourage good po intake with each meal. Pulmonary: Encourage good pulmonary toileting. IS at bedside and pt encouraged to use. Rationale for use explained to patient, and verbalized understanding. PAIN Management: Percocet po. Trazodone at bedtime. (Amantadine) Activity: OOB to stretcher chair. PT and OT ordered. (VERITO MCKEON) GI prophylaxis: Protonix IV. Bowel regimen: [place]-colace and MOM. Lactulose daily./ Bisacodyl PRN. LBM: 09/13 DVT prophylaxis: Mechanical VTE with SCDs. Chemical management contraindicated at this time due to SAH/SDH (await neurosurgery clearance) DC Planning: Case management consulted for assistance with final discharge disposition. Patient has been accepted at [facility], awaiting authorization so he may transfer. Emotional support provided to patient and family at bedside and plan of care discussed. Discussed with RN at bedside Patient is hemodynamically stable and being managed on the [facility] floor. When authorization complete he can transferred to [facility]. Problem Qualifiers (1) Traumatic brain injury: Qualified Code: S06.9X9D - Traumatic brain injury, with loss of consciousness of unspecified duration, subsequent encounter (2) Sternal fracture: Qualified Code: S22.20XA - Closed fracture of sternum, unspecified portion of sternum, initial encounter (3) Closed left clavicular fracture: Qualified Code: S42.022A - Closed displaced fracture of shaft of left clavicle , initial encounter Sophia Starr Sep 14, 2016 12:33
[2016-09-14 13:28] VITALS: BP 138/85; PULSE 82; RESP 18; TEMP 97.1; O2SAT 98
[2016-09-14] MEDS: oxyCODONE/ACETAMINOPHEN 10 MG/325 MG TAB PO/NG PRN (13:28)
[2016-09-14 16:15] VITALS: BP 116/80; PULSE 94; RESP 18; TEMP 97; O2SAT 97
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
[2016-09-26] MEDS ORDERED: CIPR250T52 PO (08:39)
[2016-09-26] MEDS ORDERED: MELA1TAB22 PO (08:39)
[2016-09-26] MEDS ORDERED: MIRTA15 PO (08:39)
[2016-09-26] MEDS ORDERED: OXYC1TAB36 PO (08:39)
[2016-09-26] MEDS ORDERED: NYST1000 SWAB (08:39)
[2016-09-26] MEDS ORDERED: CLON.1T TD (08:39)
== END 2016-09-14 17:31 | DRG 955 ==
LOC: NEPI 22:18 → NEDA 23:17 → EDBD 23:17 → N03B 23:25 → N05B 09-13 17:00
PROVIDERS: ADMIT Surgery; ATTEND Surgery
PROC: 5A1955Z Respiratory Ventilation, Greater than 96 Consecutive Hours (ICD-10-PCS; 2016-08-27)
PROC: 00H032Z Insertion of Monitoring Device into Brain, Percutaneous Approach (ICD-10-PCS; principal; 2016-08-28)
PROC: 4A103BD Monitoring of Intracranial Pressure, Percutaneous Approach (ICD-10-PCS; 2016-08-28)
PROC: 03HY32Z Insertion of Monitoring Device into Upper Artery, Percutaneous Approach (ICD-10-PCS; 2016-08-28)
DX: S06.6X5A Traumatic subarachnoid hemorrhage with loss of consciousness greater than 24 hours with return to pre-existing conscious level, initial encounter (principal); G93.6 Cerebral edema; J96.01 Acute respiratory failure with hypoxia; G93.40 Encephalopathy, unspecified; S27.322A Contusion of lung, bilateral, initial encounter; S22.43XA Multiple fractures of ribs, bilateral, initial encounter for closed fracture; S06.38 Contusion, laceration, and hemorrhage of brainstem; S22.069A Unspecified fracture of T7-T8 vertebra, initial encounter for closed fracture; S22.22XA Fracture of body of sternum, initial encounter for closed fracture; G81.94 Hemiplegia, unspecified affecting left nondominant side; S02.40FA Zygomatic fracture, left side, initial encounter for closed fracture; S02.82XA Fracture of other specified skull and facial bones, left side, initial encounter for closed fracture; S42.022A Displaced fracture of shaft of left clavicle, initial encounter for closed fracture; S02.2XXA Fracture of nasal bones, initial encounter for closed fracture; R40.2432 Glasgow coma scale score 3-8, at arrival to emergency department; I71.4 Abdominal aortic aneurysm, without rupture; M50.30 Other cervical disc degeneration, unspecified cervical region; I10 Essential (primary) hypertension; E78.00 Pure hypercholesterolemia, unspecified; E11.9 Type 2 diabetes mellitus without complications; I25.2 Old myocardial infarction; W20.8XXA Other cause of strike by thrown, projected or falling object, initial encounter; Y93.82 Activity, spectator at an event; Y92.39 Other specified sports and athletic area as the place of occurrence of the external cause; Z79.84 Long term (current) use of oral hypoglycemic drugs; Z87.891 Personal history of nicotine dependence
CPT/HCPCS: 31500; 36556; 36600; 61210; 70450; 70486; 70553; 71010; 71260; 72125; 72128; 72131; 72170; 73000; 74000; 74177; 76937; 80048; 80053; 80202; 80307; 81001; 82435; 82550; 82552; 82565; 82805; 82947; 82948; 83735; 83930; 84100; 84132; 84295; 84484; 84520; 85007; 85014; 85018; 85025; 85027; 85384; 85610; 85730; 86403; 86850; 86900; 86901; 86920; 87040; 87070; 87086; 87147; 87186; 87205; 87641; 90471; 93005; 93306; 94002; 94003; 94640; 94664; 94667; 94770; 95819; 96374; 96375; 99291; A0431-QM-SH; A0436-QM-SH; A9579; C9113; G0390; J0131; J0171; J0330; J0360; J0461; J1815; J1940; J1953; J2250; J2270; J2405; J2543; J3010; J3370; J7030; J7040; J7050; L0200; L0484; P9045; Q9967